=== PATIENT | female | born 1950 | race Caucasian/White ===

== ENCOUNTER → 2017-03-28 16:16 | Outpatient (CLI) | payer BC ==
[2015-06-03 09:51] VITALS: BMI 25.0
[~2017-03-28 16:16] MED LIST: CATAPRES TTS-10.1 MG TD; CATAPRES TTS-20.2 MG TD; CATAPRES0.1 MG PO; COLACE100 MG PO; EFFIENT10 MG PO; FLAGYL500 MG PO; GLUCOPHAGE500 MG PO; HYDRALAZINE HCL25 MG PO; HYDRALAZINE HCL50 MG PO; IBUPROFEN200 MG PO; LANTUS INSULIN10 ML SC; LANTUS SOL100 UNIT/1 SQ; LASIX20 MG PO; LEVAQUIN500 MG PO; LIPITOR80 MG PO; NEURONTIN 300300 MG PO; NEURONTIN600 MG PO; NICODERM C1 PATCH .3 TRANSDERM; NORCO 7.5/325 T1 TA1 PO; NORMODYNE / TR300 MG PO; NORVASC10 MG PO; PEPCID20 MG PO; POTASSIUM; PRINIVIL20 MG PO; TRANDATE300 MG PO; TYLENOL W/CODEI1 TAB PO; ZESTRIL40 MG PO
== END | disposition home or self-care (01) ==
LOC: D.RAD 16:16
DX: R05 Cough (principal); R50.9 Fever, unspecified

== ENCOUNTER 2017-04-16 10:12 | Inpatient (IN) | payer MEDICARE, BC ==
[~2017-04-16] VITALS: Ht 170.2 cm; Wt 81.6 kg
[~2017-04-16 10:12] MED LIST changes: -CATAPRES0.1 MG PO; -FLAGYL500 MG PO; -LANTUS SOL100 UNIT/1 SQ; -LEVAQUIN500 MG PO; -LIPITOR80 MG PO
[2017-04-16 11:37] LABS: BASOPHILS 0.4 % (0-2); EOSINOPHILS 2.1 % (0-7); HEMATOCRIT 24.2 % (36.0-48.0); HEMOGLOBIN 7.6 g/dL (12-16); IMMATURE GRANULOCYTES 0.4 % (0-5); LYMPHOCYTES 5.9 % (15-50); MCH 28.8 pg (26.0-34.0); MCHC 31.4 g/dL (31.0-37.0); MCV 91.7 fL (80.0-100.0); MEAN PLATELET VOLUME 10.2 fL (7.4-10.4); MONOCYTES 3.5 % (2-11); NEUTROPHILS 87.7 % (40-80); PLATELET COUNT 384 10x3/uL (130-400); RBC 2.64 10x6/uL (4.00-5.40); WBC 14.2 10x3/uL (4.8-10.8)
[2017-04-16 12:12] LABS: APPEARANCE CLOUDY (CLEAR); BILIRUBIN NEGATIVE (NEGATIVE); COLOR YELLOW (YELLOW); GLUCOSE NEGATIVE (NEGATIVE); KETONE NEGATIVE (NEGATIVE); NITRITE NEGATIVE (NEGATIVE); PROTEIN 2+ mg/dL (NEGATIVE); SPECIFIC GRAVITY 1.015 (1.005-1.020); UROBILINOGEN NORMAL (NORMAL)
[2017-04-16 12:16] LABS: BACTERIA MANY /hpf (NONE SEEN); EPITHELIAL CELLS OCC /hpf (0-5); RED CELLS - URINE 0-5 /hpf (0-5); WHITE CELLS - URINE 25-50 /hpf (0-5); YEAST >1+ /hpf (NONE SEEN)
[2017-04-16 12:21] LABS: ALBUMIN 1.5 g/dL (3.4-5.0); ANION GAP 15.3 mmol/L (8-16); BILIRUBIN - TOTAL 0.46 mg/dL (0.2-1.3); CALCIUM 7.4 mg/dL (8.5-10.1); CARBON DIOXIDE 17.9 mmol/L (21.0-32.0); CREATININE - SERUM 2.9 mg/dL (0.6-1.3); POTASSIUM - SERUM 4.2 mmol/L (3.5-5.1); PROTEIN - SERUM 6.3 g/dL (6.4-8.2)
[2017-04-16 15:33] VITALS: BP 158/81; BMI 29.0
[2017-04-16 17:08] LABS: HEMATOCRIT 24.5 % (36.0-48.0); HEMOGLOBIN 7.8 g/dL (12-16)
[2017-04-16 21:39] VITALS: BP 151/80
[2017-04-16 22:26] LABS: HEMATOCRIT 21.4 % (36.0-48.0)
[2017-04-16 22:39] LABS: HEMOGLOBIN 6.9 g/dL (12-16)
[2017-04-17] VITALS (7 sets, daily range): BP systolic 124–220; BP diastolic 82–109; Ht 170.2 cm; Wt 81.6 kg
[2017-04-17 06:21] LABS: BASOPHILS 0.4 % (0-2); EOSINOPHILS 1.9 % (0-7); IMMATURE GRANULOCYTES 0.3 % (0-5); LYMPHOCYTES 11.1 % (15-50); MCH 29.5 pg (26.0-34.0); MCHC 33.3 g/dL (31.0-37.0); MEAN PLATELET VOLUME 10.3 fL (7.4-10.4); MONOCYTES 7.1 % (2-11); NEUTROPHILS 79.2 % (40-80); PLATELET COUNT 363 10x3/uL (130-400); RBC 3.05 10x6/uL (4.00-5.40); RDW 15.6 % (11.5-14.5); WBC 13.2 10x3/uL (4.8-10.8)
[2017-04-17 06:24] LABS: MCV 88.5 fL (80.0-100.0)
[2017-04-17 06:35] LABS: CALCIUM 7.8 mg/dL (8.5-10.1); CARBON DIOXIDE 18.9 mmol/L (21.0-32.0); CREATININE - SERUM 2.5 mg/dL (0.6-1.3); POTASSIUM - SERUM 3.9 mmol/L (3.5-5.1)
[2017-04-17 14:07] LABS: HEMATOCRIT 26.8 % (36.0-48.0); HEMOGLOBIN 8.9 g/dL (12-16)
[2017-04-17 20:24] LABS: HEMATOCRIT 27.3 % (36.0-48.0); HEMOGLOBIN 8.9 g/dL (12-16)
[2017-04-17 22:34] LABS: HEMATOCRIT 27.8 % (36.0-48.0); HEMOGLOBIN 8.9 g/dL (12-16)
[2017-04-18 04:00] VITALS: BP 181/89
[2017-04-18 04:50] LABS: BASOPHILS 0.5 % (0-2); EOSINOPHILS 3.4 % (0-7); HEMATOCRIT 29.7 % (36.0-48.0); HEMOGLOBIN 9.5 g/dL (12-16); IMMATURE GRANULOCYTES 0.2 % (0-5); LYMPHOCYTES 10.8 % (15-50); MCH 28.8 pg (26.0-34.0); MEAN PLATELET VOLUME 10.3 fL (7.4-10.4); MONOCYTES 9.3 % (2-11); NEUTROPHILS 75.8 % (40-80); PLATELET COUNT 366 10x3/uL (130-400); WBC 11.3 10x3/uL (4.8-10.8)
[2017-04-18 05:14] LABS: ALBUMIN 1.5 g/dL (3.4-5.0); BILIRUBIN - TOTAL 0.47 mg/dL (0.2-1.3); CALCIUM 7.6 mg/dL (8.5-10.1); CARBON DIOXIDE 19.4 mmol/L (21.0-32.0); PROTEIN - SERUM 6.2 g/dL (6.4-8.2)
[2017-04-18 05:18] LABS: ANION GAP 15.2 mmol/L (8-16); POTASSIUM - SERUM 4.6 mmol/L (3.5-5.1)
[2017-04-18 08:51] VITALS: BP 207/94
[2017-04-18 11:29] VITALS: BP 185/99
[2017-04-18] MEDS ORDERED: LIPITOR80 MG PO (12:29)
[2017-04-18] MEDS ORDERED: CATAPRES0.1 MG PO (12:29)
[2017-04-18] MEDS ORDERED: HYDRALAZINE HCL25 MG PO (12:30)
[2017-04-18] MEDS ORDERED: LANTUS SOL100 UNIT/1 SQ (12:35)
[2017-04-18 13:59] LABS: HEMATOCRIT 28.5 % (36.0-48.0); HEMOGLOBIN 9.2 g/dL (12-16)
[2017-04-18 15:18] VITALS: BP 208/103
[2017-04-18 16:25] LABS: HEMATOCRIT 27.3 % (36.0-48.0); HEMOGLOBIN 8.9 g/dL (12-16)
[2017-04-18 22:25] VITALS: BP 124/79
[2017-04-19 01:27] VITALS: BP 188/90
[2017-04-19 06:28] VITALS: BP 188/85
[2017-04-19 06:28] LABS: BASOPHILS 0.3 % (0-2); EOSINOPHILS 3.6 % (0-7); HEMOGLOBIN 9.3 g/dL (12-16); IMMATURE GRANULOCYTES 0.3 % (0-5); LYMPHOCYTES 10.8 % (15-50); MCH 28.8 pg (26.0-34.0); MCHC 32.1 g/dL (31.0-37.0); MCV 89.8 fL (80.0-100.0); MEAN PLATELET VOLUME 10.4 fL (7.4-10.4); MONOCYTES 9.1 % (2-11); NEUTROPHILS 75.9 % (40-80); PLATELET COUNT 345 10x3/uL (130-400); RBC 3.23 10x6/uL (4.00-5.40); RDW 15.8 % (11.5-14.5); WBC 10.6 10x3/uL (4.8-10.8)
[2017-04-19 07:09] LABS: ALBUMIN 1.5 g/dL (3.4-5.0); BILIRUBIN - TOTAL 0.3 mg/dL (0.2-1.3); CALCIUM 7.3 mg/dL (8.5-10.1); CREATININE - SERUM 1.9 mg/dL (0.6-1.3); PROTEIN - SERUM 6.3 g/dL (6.4-8.2)
[2017-04-19 07:12] LABS: ANION GAP 13.3 mmol/L (8-16); POTASSIUM - SERUM 3.3 mmol/L (3.5-5.1)
[2017-04-19 08:12] VITALS: BP 218/109
[2017-04-19 12:37] LABS: HEMATOCRIT 28.5 % (36.0-48.0); HEMOGLOBIN 9.3 g/dL (12-16)
[2017-04-19] MEDS ORDERED: LEVAQUIN500 MG PO (13:58)
[2017-04-19] MEDS ORDERED: FLAGYL500 MG PO (13:59)
[2017-04-19 16:42] VITALS: BP 183/92
[2017-04-19 17:12] LABS: HEMATOCRIT 27.6 % (36.0-48.0); HEMOGLOBIN 8.9 g/dL (12-16)
[2017-04-19 19:00] VITALS: BP 196/102
[2017-04-20 00:17] LABS: HEMATOCRIT 27.7 % (36.0-48.0); HEMOGLOBIN 9.1 g/dL (12-16)
[2017-04-20 00:35] VITALS: BP 137/100
[2017-04-20 04:00] VITALS: BP 141/98
[2017-04-20 05:42] LABS: BASOPHILS 0.5 % (0-2); EOSINOPHILS 6.5 % (0-7); HEMATOCRIT 29.2 % (36.0-48.0); HEMOGLOBIN 9.4 g/dL (12-16); IMMATURE GRANULOCYTES 0.3 % (0-5); LYMPHOCYTES 13.2 % (15-50); MCH 29.1 pg (26.0-34.0); MCHC 32.2 g/dL (31.0-37.0); MCV 90.4 fL (80.0-100.0); MEAN PLATELET VOLUME 10.2 fL (7.4-10.4); MONOCYTES 9.2 % (2-11); NEUTROPHILS 70.3 % (40-80); PLATELET COUNT 346 10x3/uL (130-400); RBC 3.23 10x6/uL (4.00-5.40); WBC 10.1 10x3/uL (4.8-10.8)
[2017-04-20 06:02] LABS: ALBUMIN 1.5 g/dL (3.4-5.0); ANION GAP 13.2 mmol/L (8-16); BILIRUBIN - TOTAL 0.2 mg/dL (0.2-1.3); CALCIUM 7.3 mg/dL (8.5-10.1); CARBON DIOXIDE 20.9 mmol/L (21.0-32.0); CREATININE - SERUM 1.8 mg/dL (0.6-1.3); POTASSIUM - SERUM 3.1 mmol/L (3.5-5.1); PROTEIN - SERUM 6.4 g/dL (6.4-8.2)
[2017-04-20 08:35] VITALS: BP 134/66
[2017-04-20 10:10] LABS: HEMATOCRIT 28.2 % (36.0-48.0)
[2017-04-20 12:44] VITALS: BP 189/123
== END 2017-04-20 16:14 | DRG 811 ==
LOC: D.ER 10:12 → D.M2 14:06
PROVIDERS: Emergency Medicine; Family Medicine; Internal Medicine Nephrology
DX: D62 Acute posthemorrhagic anemia (principal); E43 Unspecified severe protein-calorie malnutrition; A09 Infectious gastroenteritis and colitis, unspecified; F17.203 Nicotine dependence unspecified, with withdrawal; N39.0 Urinary tract infection, site not specified; E11.22 Type 2 diabetes mellitus with diabetic chronic kidney disease; I12.9 Hypertensive chronic kidney disease with stage 1 through stage 4 chronic kidney disease, or unspecified chronic kidney disease; N18.3 Chronic kidney disease, stage 3 (moderate); I25.10 Atherosclerotic heart disease of native coronary artery without angina pectoris; E11.40 Type 2 diabetes mellitus with diabetic neuropathy, unspecified; Z68.29 Body mass index [BMI] 29.0-29.9, adult; R19.5 Other fecal abnormalities; Z86.73 Personal history of transient ischemic attack (TIA), and cerebral infarction without residual deficits; Z95.5 Presence of coronary angioplasty implant and graft

== ENCOUNTER 2017-09-20 21:41 | Observation (INO) | payer MEDICARE ==
[~2017-09-20] VITALS: Ht 170.2 cm; Wt 92.1 kg
[~2017-09-20 21:41] MED LIST changes: +CATAPRES0.1 MG PO; +CATAPRES0.3 MG PO; +FERROUS SULFAT325 MG PO; +FLAGYL500 MG PO; +IPRAT-ALBUT 0.5-3 ML UPD; +LANTUS SOL100 UNIT/1 SQ; +LASIX40 MG PO; +LEVAQUIN500 MG PO; +LIPITOR80 MG PO; +LISINOPRIL5 MG PO; +LOVENOX30 MG/0.3 SC; +LYRICA25 MG PO; +NORVASC5 MG PO; +NYSTATIN1 PWD TOPICAL; +OXYCODONE HCL5 MG PO; +POTASSIUM CHLO20 MEQ PO; +VITAMIN B-1250 MCG PO; +ZYVOX600 MG PO
[2017-09-20] MEDS ORDERED: BUMEX 1 MG TAB1 MG PO (21:50)
[2017-09-20 23:12] LABS: BASOPHILS 0.4 % (0-2); HEMATOCRIT 21.3 % (36.0-48.0); IMMATURE GRANULOCYTES 0.3 % (0-5); LYMPHOCYTES 15.3 % (15-50); MCH 28.8 pg (26.0-34.0); MCHC 31.5 g/dL (31.0-37.0); MCV 91.4 fL (80.0-100.0); MEAN PLATELET VOLUME 9.8 fL (7.4-10.4); MONOCYTES 7.6 % (2-11); NEUTROPHILS 71.4 % (40-80); RBC 2.33 10x6/uL (4.00-5.40); RDW 15.4 % (11.5-14.5); WBC 10.7 10x3/uL (4.8-10.8)
[2017-09-20 23:19] LABS: HEMOGLOBIN 6.7 g/dL (12-16); PLATELET COUNT 282 10x3/uL (130-400)
[2017-09-20 23:32] LABS: ALBUMIN 1.6 g/dL (3.4-5.0); ANION GAP 9.1 mmol/L (8-16); BILIRUBIN - TOTAL 0.17 mg/dL (0.2-1.3); CALCIUM 7.5 mg/dL (8.5-10.1); CARBON DIOXIDE 25.1 mmol/L (21.0-32.0); CREATININE - SERUM 3.6 mg/dL (0.6-1.3); POTASSIUM - SERUM 4.2 mmol/L (3.5-5.1); PROTEIN - SERUM 7.4 g/dL (6.4-8.2)
[2017-09-20 23:39] LABS: APTT 32.2 SECONDS (22.8-39.4); INR 1.12 (0.85-1.17)
[2017-09-21] VITALS (9 sets, daily range): BP systolic 134–190; BP diastolic 78–101; Ht 170.2 cm; Wt 92.1 kg
[2017-09-21 15:12] LABS: % SATURATION 29 % (15-55); IRON 38 ug/dl (35-150); TOTAL IRON BIND CAPACITY 130 ug/dl (260-445); UNSAT IRON BIND CAPACITY 92 ug/dl (150-375)
[2017-09-22 01:26] VITALS: BP 178/91
[2017-09-22 04:00] VITALS: BP 199/97
[2017-09-22 05:19] LABS: BASOPHILS 0.2 % (0-2); EOSINOPHILS 2.9 % (0-7); IMMATURE GRANULOCYTES 0.2 % (0-5); LYMPHOCYTES 12.2 % (15-50); MCH 28.7 pg (26.0-34.0); MCHC 31.9 g/dL (31.0-37.0); MCV 90.1 fL (80.0-100.0); MEAN PLATELET VOLUME 9.6 fL (7.4-10.4); MONOCYTES 6.8 % (2-11); NEUTROPHILS 77.7 % (40-80); PLATELET COUNT 293 10x3/uL (130-400); RDW 15.6 % (11.5-14.5); WBC 8.8 10x3/uL (4.8-10.8)
[2017-09-22 05:25] LABS: HEMATOCRIT 27.3 % (36.0-48.0); HEMOGLOBIN 8.7 g/dL (12-16); RBC 3.03 10x6/uL (4.00-5.40)
[2017-09-22 05:58] LABS: ANION GAP 12.7 mmol/L (8-16); CALCIUM 7.8 mg/dL (8.5-10.1); CARBON DIOXIDE 21.6 mmol/L (21.0-32.0); CREATININE - SERUM 3.4 mg/dL (0.6-1.3); POTASSIUM - SERUM 4.3 mmol/L (3.5-5.1); T4 THYROXIN - FREE 1.01 ng/dL (0.76-1.46); THYROID STIMULATING HORMONE 0.42 uIU/mL (0.36-3.74)
[2017-09-22 08:20] LABS: FOLATE (FOLIC ACID) - SERUM 18.9 ng/mL (>3.0)
[2017-09-22 08:30] VITALS: BP 194/94
[2017-09-22] MEDS ORDERED: NORVASC5 MG PO (13:29)
[2017-09-22 16:14] VITALS: BP 202/100
== END 2017-09-22 16:35 ==
LOC: D.ER 21:41 → D.M2 23:24 → D.EDHOLD 23:24 → OBSVTIME 23:24 → D.M2 23:41
PROVIDERS: Emergency Medicine; Family Medicine; Internal Medicine Gastroenterology
DX: D51.9 Vitamin B12 deficiency anemia, unspecified (principal); D63.1 Anemia in chronic kidney disease; E11.22 Type 2 diabetes mellitus with diabetic chronic kidney disease; N18.9 Chronic kidney disease, unspecified; E11.40 Type 2 diabetes mellitus with diabetic neuropathy, unspecified; K29.70 Gastritis, unspecified, without bleeding; K21.0 Gastro-esophageal reflux disease with esophagitis; K31.9 Disease of stomach and duodenum, unspecified

== ENCOUNTER → 2017-09-27 08:44 | Outpatient (CLI) | payer MEDICARE ==
[2017-09-21 20:41] VITALS: BMI 31.8
[~2017-09-27 08:44] MED LIST changes: +AUGMENTIN 875-11 TAB PO; +BUMEX 1 MG TAB1 MG PO; +DECADRON4 MG PO; +DEXEDRINE5 MG PO; +FUROSEMIDE40 MG PO; +LANTUS INSULIN10 ML SQ; +MULTIPLE VITAMI1 TA1 PO; +OS-CAL500 MG PO; +OXYCONTIN10 MG PO; +PHOSLO667 MG PO; +PROTONIX40 MG PO; +REMERON15 MG PO; +REVLIMID5 MG PO; +VIBRAMYCIN 100100 MG PO
== END | disposition home or self-care (01) ==
LOC: D.RAD 08:44
DX: C90.00 Multiple myeloma not having achieved remission (principal)

== ENCOUNTER 2017-10-13 12:34 | Inpatient (IN) | payer MEDICARE ==
[~2017-10-13] VITALS: Ht 170.2 cm; Wt 90.7 kg
--- NOTE | ~2017-10-13 | EC ---
PATIENT:YUVAL LINARES DATE OF SERVICE: 10/13/17 SEX: F MEDICAL RECORD: [id number] DATE OF : 54 LOCATION:D.M2 D.212 AGE OF PATIENT: 67 ADMISSION DATE: 10/13/17 REFERRING PHYSICIAN: INTERPRETING PHYSICIAN: MARSHALL GONZALES MD ECHOCARDIOGRAM REPORT ECHO CHARGES 4 ECHO COMPLETE Date: 10/15 CLINICAL DIAGNOSIS: CHF ECHOCARDIOGRAPHIC MEASUREMENTS (adult normal given) AC root (d.<3.7cm) 4.4 cm LV Septum d (<1.2 cm> 1.6 cm Valve Excursion 1.9 cm LV Septum (systole) 2.0 cm Left Atria (s.<4.0cm> 4.0 cm LVPW d(<1.2cm) 2.1 cm RV (d.<2.3cm) 4.0 cm LVPW (sytole) 2.3 cm LV diastole(<5.6CM) 4.6 cm MV E-F(>70mm/sec) cm LV systole 3.2 cm LVOT Diameter 2.0 cm MV exc.(>10mm) 1.7 cm Est.ejection fraction (50-75%) % DOPPLER: LVIT cm/sec A 125 cm/sec E 156 cm/sec LA cm/sec RVSP 34 mmHg LVOT 133 cm/sec AOP1/2T m/s Asc. Ao 175 cm/sec RVOT 100 cm/sec RA cm/sec PA 143 cm/sec AV Gradient Peak 12.25mmHg AV Mean 6.55 mmHg AV Area 2.5 cm MV Gradient Peak 9.67 mmHg MV Mean 4.76 mmHg MV Area cm COMMENTS: Shirring Machine Operator Automatic: 2 NORA PAVON Directional Drill Operator: 3 Dr. Krishna TAPE# PACS Pericardial Effusion N DATE OF SERVICE: 10/16/2017 Adequate 2D echo, color flow, spectral Doppler, and M-mode LVH is present. LV internal dimensions are normal. Wall motion is normal. EF is greater than or equal to 55%. Aortic valve sclerosis; there is no evidence of stenosis on Doppler interrogation. Left atrium is upper limits of normal to mildly dilated at 4.1 cm. Mitral valve shows no prolapse. Trace MR. Right-sided chamber is grossly normal. Trace TR. ECHOCARDIOGRAM REPORT [id number] YUVAL LINARES TRANSINT:[id number] Voice Confirmation ID: [id number] DOCUMENT ID: [id number] MARSHALL GONZALES MD at 1254 CC: [id number] DICTATION DATE: 10/16/17835 ELECTRIC POWER SUPERINTENDENT: 10/16/17 1130 DIS IN 10/24/17 [place] [id number] [place] [id number]
--- NOTE | ~2017-10-13 | MORECARE ---
CASE MANAGEMENT DISCHARGE SUMMARY PATIENT: YUVAL LINARES UNIT: [id number] ADM DATE: 10/13/17 AGE: 67 : 52 SEX: F ROOM/BED: D.8831 AUTHOR: CASE, [facility] OWNER PHYSICIAN: REFERRING PHYSICIAN: LARA PENA MD DATE OF SERVICE: 10/13/17 Discharge Plan Patient Name: YUVAL LINARES Facility: [facility]:[place] : 1950 Planned Disposition: SNF w Planned Readmission Anticipated Discharge Date: 10/15/17 Discharge Date: Expected LOS: 2 Initial Reviewer: [email or web address] Initial Review Date: 10/13/2017 Generated: 10/14/17 2:09 pm DCPIA - Discharge Planning Initial Assessment Updated by [email or web address]: Eliz Johns on 10/14/17 1:07 pm * Is the patient Alert and Oriented? Yes * How many steps to enterexit or inside your home? None * PCP Dr. Jann Argueta - document control manager * Pharmacy [facility] * Preadmission Environment Shelter Facility * Facility Name [facility] * ADLs Partial Dependent * Partial ADLs (Assistance needed) Ambulation Bathing Medication Management Toileting Transfers * Equipment Wheelchair * Other Equipment Only able to transfer from wheelchair to bed with assistance. * List name and contact numbers for known caregivers / representatives who currently or will assist patient after discharge: Rashi Linares - [facility]- [phone] Yeimy Marcel - dtr in law- * Verbal permission to speak to the caregivers and representatives has been obtained from the patient. Yes * Community resources currently utilized None * Additional services required to return to the preadmission environment? No * Can the patient safely return to the preadmission environment? Yes * Has this patient been hospitalized within the prior 30 days at any hospital? Yes Patient Name: YUVAL LINARES Page [id number] All edits/amendments must be made on the electronic document DICTATION DATE: 10/14/17 1309 FLEET DRIVER: 10/14/17 1309 RPT#: [id number] DC DATE: STATUS: ADM IN [facility] [address] [place] [address] END OF REPORT
--- NOTE | ~2017-10-13 | OP ---
PATIENT NAME: YUAVL LINARES MEDICAL RECORD: [id number] :54 LOCATION:D.M2 D.2129 ADMISSION DATE:10/13/17 SURGEON: CHEY FULTON MD DATE OF OPERATION: 10/16/2017 PREOPERATIVE DIAGNOSIS: End-stage renal disease without chronic access for hemodialysis. POSTOPERATIVE DIAGNOSIS: End-stage renal disease without chronic access for hemodialysis. PROCEDURES: 1. Placement of right internal jugular HemoSplit catheter (tunneled cuffed dual-lumen hemodialysis catheter) under fluoroscopic guidance. 2. Immediate surgeon interpretation of the fluoroscopic images. SURGEON: Chey Fulton MD REED PRESS FEEDER: None. BLOOD LOSS: Minimal. ANESTHESIA: Local with IV sedation. COMPLICATIONS: None. The risks, possible complications, and alternatives to the procedure were explained to the patient. She elects to proceed. Initially she has been resistant to undergo the operation. However, I discussed the operation in the presence of one of her friends who works in the operating room and the patient elected to proceed. No radiologist was present for this procedure. Static fluoroscopic images were obtained and are kept in the PACS system. A surgeon interpretation of the radiographic images is dictated within the body of this operative note. OPERATIVE COURSE: The patient was conveyed to the operating room electively on 10/16/2017. IV sedation was induced by the anesthesia staff. The right chest and right neck were sterilely prepped and draped. Local anesthetic was used to infiltrate the skin and subcutaneous tissues at the base of the right neck. Under ultrasonographic guidance, I identified a very large compressible internal jugular vein. I percutaneously access the internal jugular vein on the first try in an antegrade fashion. A guidewire passed easily. This was visualized under fluoroscopy. A counterincision was accomplished in the right anterior superior chest inferior to the right clavicle. An incision was accomplished around the wire. I tunneled a 19-cm HemoSplit catheter from the chest incision to the neck incision. Over the guidewire, I dilated to a larger size. This was visualized under fluoroscopy. A dilator sheath was then advanced over the wire. The dilator and wire were removed. Through the sheath, the tips of the HemoSplit catheter were advanced. The peel-away sheath was then removed. I pulled back on the HemoSplit catheter to seat the cuff in subcutaneous tissues. All lumens flushed easily and aspirated dark, nonpulsatile blood. An image was obtained over the right side of the chest. It revealed that the longest tip of the HemoSplit catheter was near the cavoatrial junction. There OPERATIVE REPORT [id number] MILAGROSYUVAL was no apparent kinking or twisting of the HemoSplit catheter. No radiographic evidence of complication. Neck incision was closed with a single intracuticular 3-0 Vicryl. The flange of the HemoSplit catheter were sutured to the underlying skin with 2-0 nylons. I then topped off both lumens of the HemoSplit catheter with the appropriate amount of concentrated heparin. As the patient is going to be prone to bleeding, I then packed some fibrillar up along the HemoSplit catheter tract. A sterile dressing was applied. The patient was then conveyed to the post-anesthesia care unit where she was in stable condition. TRANSINT:[id number] Voice Confirmation ID: [id number] DOCUMENT ID: [id number] CHEY FULTON MD at 1023 CC: LOGAN CELIS MD and SHAHAB FRANCOIS [id number] DICTATION DATE: 10/16/17 1255 PHYSICAL THERAPY ASSISTANT: 10/16/17 1316 ADM IN [facility] [address] [place] [address]
[~2017-10-13 12:34] MED LIST changes: -AUGMENTIN 875-11 TAB PO; -DECADRON4 MG PO; -DEXEDRINE5 MG PO; -FUROSEMIDE40 MG PO; -LANTUS INSULIN10 ML SQ; -MULTIPLE VITAMI1 TA1 PO; -OS-CAL500 MG PO; -OXYCONTIN10 MG PO; -PHOSLO667 MG PO; -PROTONIX40 MG PO; -REMERON15 MG PO; -REVLIMID5 MG PO; -VIBRAMYCIN 100100 MG PO
[2017-10-13] MEDS ORDERED: NORVASC5 MG PO (12:40)
[2017-10-13] MEDS ORDERED: LIPITOR80 MG PO (12:40)
[2017-10-13] MEDS ORDERED: BUMEX 1 MG TAB1 MG PO (12:41)
[2017-10-13] MEDS ORDERED: CATAPRES0.1 MG PO ×2 (12:42→12:43)
[2017-10-13] MEDS ORDERED: OS-CAL500 MG PO (12:42)
[2017-10-13] MEDS ORDERED: COLACE100 MG PO (12:43)
[2017-10-13] MEDS ORDERED: DECADRON4 MG PO (12:44)
[2017-10-13] MEDS ORDERED: VIBRAMYCIN 100100 MG PO (12:45)
[2017-10-13] MEDS ORDERED: LOVENOX30 MG/0.3 SC (12:45)
[2017-10-13] MEDS ORDERED: FERROUS SULFAT325 MG PO (12:45)
[2017-10-13] MEDS ORDERED: FUROSEMIDE40 MG PO (12:46)
[2017-10-13] MEDS ORDERED: HYDRALAZINE HCL50 MG PO (12:46)
[2017-10-13] MEDS ORDERED: LANTUS INSULIN10 ML SQ (12:47)
[2017-10-13] MEDS ORDERED: IPRAT-ALBUT 0.5-3 ML UPD (12:48)
[2017-10-13] MEDS ORDERED: PRINIVIL20 MG PO (12:49)
[2017-10-13] MEDS ORDERED: LYRICA25 MG PO (12:49)
[2017-10-13] MEDS ORDERED: DEXEDRINE5 MG PO (12:50)
[2017-10-13] MEDS ORDERED: NYSTATIN1 PWD TOPICAL (12:51)
[2017-10-13] MEDS ORDERED: MULTIPLE VITAMI1 TA1 PO (12:51)
[2017-10-13] MEDS ORDERED: REMERON15 MG PO (12:52)
[2017-10-13] MEDS ORDERED: OXYCONTIN10 MG PO (12:52)
[2017-10-13] MEDS ORDERED: REVLIMID5 MG PO (12:53)
[2017-10-13 13:31] LABS: BASOPHILS 0.1 % (0-2); EOSINOPHILS 0.7 % (0-7); HEMATOCRIT 26.3 % (36.0-48.0); HEMOGLOBIN 8.2 g/dL (12-16); IMMATURE GRANULOCYTES 0.4 % (0-5); LYMPHOCYTES 3.9 % (15-50); MCH 28.6 pg (26.0-34.0); MCHC 31.2 g/dL (31.0-37.0); MCV 91.6 fL (80.0-100.0); MEAN PLATELET VOLUME 11.1 fL (7.4-10.4); MONOCYTES 11.4 % (2-11); NEUTROPHILS 83.5 % (40-80); RBC 2.87 10x6/uL (4.00-5.40); RDW 15.9 % (11.5-14.5); WBC 16.4 10x3/uL (4.8-10.8)
[2017-10-13 13:37] LABS: APTT 38.8 SECONDS (22.8-39.4); INR 1.32 (0.85-1.17)
[2017-10-13 13:44] LABS: ALBUMIN 1.4 g/dL (3.4-5.0); ANION GAP 16.7 mmol/L (8-16); BILIRUBIN - TOTAL 0.3 mg/dL (0.2-1.3); CARBON DIOXIDE 17.9 mmol/L (21.0-32.0); CREATININE - SERUM 5.7 mg/dL (0.6-1.3); POTASSIUM - SERUM 4.6 mmol/L (3.5-5.1); PROTEIN - SERUM 7.2 g/dL (6.4-8.2)
[2017-10-13 13:49] LABS: PLATELET COUNT 224 10x3/uL (130-400)
[2017-10-13 14:05] LABS: CALCIUM 4.4 mg/dL (8.5-10.1)
[2017-10-13 16:40] LABS: APPEARANCE HAZY (CLEAR); BILIRUBIN NEGATIVE (NEGATIVE); COLOR YELLOW (YELLOW); GLUCOSE NEGATIVE (NEGATIVE); KETONE NEGATIVE (NEGATIVE); NITRITE NEGATIVE (NEGATIVE); PROTEIN 2+ mg/dL (NEGATIVE); UROBILINOGEN NORMAL (NORMAL); WHITE CELLS - URINE >50 /hpf (0-5)
[2017-10-13 16:41] LABS: BACTERIA MANY /hpf (NONE SEEN); EPITHELIAL CELLS 0-5 /hpf (0-5); RED CELLS - URINE 0-5 /hpf (0-5)
[2017-10-14] VITALS (7 sets, daily range): BP systolic 111–140; BP diastolic 60–70; Ht 170.2 cm; Wt 90.7 kg
[2017-10-14 05:54] LABS: BASOPHILS 0.1 % (0-2); EOSINOPHILS 0.8 % (0-7); HEMATOCRIT 25.3 % (36.0-48.0); HEMOGLOBIN 7.9 g/dL (12-16); IMMATURE GRANULOCYTES 0.3 % (0-5); LYMPHOCYTES 5.5 % (15-50); MCH 28.6 pg (26.0-34.0); MCHC 31.2 g/dL (31.0-37.0); MCV 91.7 fL (80.0-100.0); MONOCYTES 13.3 % (2-11); PLATELET COUNT 194 10x3/uL (130-400); RBC 2.76 10x6/uL (4.00-5.40); WBC 13.1 10x3/uL (4.8-10.8)
[2017-10-14 06:45] LABS: ALBUMIN 1.3 g/dL (3.4-5.0); ANION GAP 17.9 mmol/L (8-16); BILIRUBIN - TOTAL 0.25 mg/dL (0.2-1.3); CARBON DIOXIDE 18.3 mmol/L (21.0-32.0); CREATININE - SERUM 5.8 mg/dL (0.6-1.3); POTASSIUM - SERUM 5.2 mmol/L (3.5-5.1); PROTEIN - SERUM 6.7 g/dL (6.4-8.2)
[2017-10-14 06:56] LABS: CALCIUM 4.1 mg/dL (8.5-10.1)
[2017-10-15 04:30] VITALS: BP 137/68
[2017-10-15 04:50] LABS: BASOPHILS 0.1 % (0-2); EOSINOPHILS 0.3 % (0-7); HEMATOCRIT 24.8 % (36.0-48.0); HEMOGLOBIN 7.7 g/dL (12-16); IMMATURE GRANULOCYTES 0.5 % (0-5); LYMPHOCYTES 3.9 % (15-50); MCH 28.3 pg (26.0-34.0); MCV 91.2 fL (80.0-100.0); MEAN PLATELET VOLUME 11.5 fL (7.4-10.4); MONOCYTES 14.8 % (2-11); NEUTROPHILS 80.4 % (40-80); PLATELET COUNT 167 10x3/uL (130-400); RBC 2.72 10x6/uL (4.00-5.40); RDW 16.1 % (11.5-14.5)
[2017-10-15 05:16] LABS: ALBUMIN 1.3 g/dL (3.4-5.0); ANION GAP 19.1 mmol/L (8-16); BILIRUBIN - TOTAL 0.27 mg/dL (0.2-1.3); CARBON DIOXIDE 15.3 mmol/L (21.0-32.0); POTASSIUM - SERUM 5.4 mmol/L (3.5-5.1); PROTEIN - SERUM 6.7 g/dL (6.4-8.2)
[2017-10-15 05:19] LABS: CALCIUM 3.9 mg/dL (8.5-10.1)
[2017-10-15 08:55] VITALS: BP 135/69
[2017-10-15 13:25] VITALS: BP 138/72
[2017-10-15 16:11] VITALS: BP 137/67
[2017-10-15 21:54] VITALS: BP 135/67
[2017-10-16 02:13] VITALS: BP 142/70
[2017-10-16 05:26] VITALS: BP 134/69
[2017-10-16 06:24] LABS: BASOPHILS 0.2 % (0-2); EOSINOPHILS 0.2 % (0-7); HEMATOCRIT 29.7 % (36.0-48.0); IMMATURE GRANULOCYTES 0.5 % (0-5); LYMPHOCYTES 4.5 % (15-50); MCHC 32.3 g/dL (31.0-37.0); MCV 89.7 fL (80.0-100.0); MEAN PLATELET VOLUME 11.4 fL (7.4-10.4); MONOCYTES 9.9 % (2-11); NEUTROPHILS 84.7 % (40-80); PLATELET COUNT 157 10x3/uL (130-400); RDW 16.1 % (11.5-14.5); WBC 13.3 10x3/uL (4.8-10.8)
[2017-10-16 06:30] LABS: HEMOGLOBIN 9.6 g/dL (12-16); RBC 3.31 10x6/uL (4.00-5.40)
[2017-10-16 06:44] LABS: ALBUMIN 1.3 g/dL (3.4-5.0); ANION GAP 21.3 mmol/L (8-16); BILIRUBIN - TOTAL 0.44 mg/dL (0.2-1.3); CARBON DIOXIDE 15.1 mmol/L (21.0-32.0); CREATININE - SERUM 5.7 mg/dL (0.6-1.3); POTASSIUM - SERUM 5.4 mmol/L (3.5-5.1); PROTEIN - SERUM 6.9 g/dL (6.4-8.2)
[2017-10-16 06:50] LABS: CALCIUM 3.9 mg/dL (8.5-10.1)
[2017-10-16 10:10] VITALS: BP 118/70
[2017-10-16 13:56] VITALS: BP 140/71
[2017-10-17 05:17] VITALS: BP 112/62
[2017-10-17 05:58] LABS: BASOPHILS 0.1 % (0-2); EOSINOPHILS 0.1 % (0-7); HEMATOCRIT 29.4 % (36.0-48.0); HEMOGLOBIN 9.5 g/dL (12-16); IMMATURE GRANULOCYTES 0.5 % (0-5); LYMPHOCYTES 3.1 % (15-50); MCH 28.5 pg (26.0-34.0); MCHC 32.3 g/dL (31.0-37.0); MCV 88.3 fL (80.0-100.0); MEAN PLATELET VOLUME 11.5 fL (7.4-10.4); NEUTROPHILS 87.2 % (40-80); PLATELET COUNT 149 10x3/uL (130-400); RBC 3.33 10x6/uL (4.00-5.40)
[2017-10-17 06:23] LABS: ALBUMIN 1.3 g/dL (3.4-5.0); BILIRUBIN - TOTAL 0.5 mg/dL (0.2-1.3); CARBON DIOXIDE 18.8 mmol/L (21.0-32.0); CREATININE - SERUM 4.5 mg/dL (0.6-1.3); PROTEIN - SERUM 6.9 g/dL (6.4-8.2)
[2017-10-17 06:26] LABS: ANION GAP 18.2 mmol/L (8-16)
[2017-10-17 06:27] LABS: CALCIUM 4.9 mg/dL (8.5-10.1)
[2017-10-17 08:17] VITALS: BP 161/74
[2017-10-17 12:05] VITALS: BP 158/82
[2017-10-17 16:45] VITALS: BP 153/73
[2017-10-17 20:00] VITALS: BP 123/81
[2017-10-18] VITALS: BP 161/84
[2017-10-18 04:00] VITALS: BP 159/80
[2017-10-18 05:55] LABS: BASOPHILS 0.2 % (0-2); EOSINOPHILS 0.4 % (0-7); HEMATOCRIT 29.6 % (36.0-48.0); HEMOGLOBIN 9.6 g/dL (12-16); IMMATURE GRANULOCYTES 0.3 % (0-5); LYMPHOCYTES 3.5 % (15-50); MCH 29.1 pg (26.0-34.0); MCHC 32.4 g/dL (31.0-37.0); MCV 89.7 fL (80.0-100.0); MEAN PLATELET VOLUME 11.3 fL (7.4-10.4); NEUTROPHILS 86.6 % (40-80); PLATELET COUNT 144 10x3/uL (130-400); RDW 16.4 % (11.5-14.5)
[2017-10-18 06:35] LABS: ALBUMIN 1.2 g/dL (3.4-5.0); ANION GAP 18.5 mmol/L (8-16); BILIRUBIN - TOTAL 0.42 mg/dL (0.2-1.3); CARBON DIOXIDE 18.1 mmol/L (21.0-32.0); CREATININE - SERUM 4.5 mg/dL (0.6-1.3); POTASSIUM - SERUM 3.6 mmol/L (3.5-5.1); PROTEIN - SERUM 6.6 g/dL (6.4-8.2)
[2017-10-18 06:38] LABS: CALCIUM 5.3 mg/dL (8.5-10.1)
[2017-10-18 09:16] VITALS: BP 152/85
[2017-10-18 12:22] VITALS: BP 162/84
[2017-10-18 20:00] VITALS: BP 179/68
[2017-10-19 06:11] VITALS: BP 165/95
[2017-10-19 06:19] LABS: BASOPHILS 0.1 % (0-2); EOSINOPHILS 1.5 % (0-7); HEMATOCRIT 30.9 % (36.0-48.0); HEMOGLOBIN 9.6 g/dL (12-16); IMMATURE GRANULOCYTES 0.3 % (0-5); LYMPHOCYTES 8.6 % (15-50); MCH 28.2 pg (26.0-34.0); MCHC 31.1 g/dL (31.0-37.0); MCV 90.9 fL (80.0-100.0); MEAN PLATELET VOLUME 11.3 fL (7.4-10.4); MONOCYTES 6.2 % (2-11); NEUTROPHILS 83.3 % (40-80); PLATELET COUNT 158 10x3/uL (130-400); RDW 16.3 % (11.5-14.5); WBC 11.1 10x3/uL (4.8-10.8)
[2017-10-19 06:49] LABS: ALBUMIN 1.2 g/dL (3.4-5.0); BILIRUBIN - TOTAL 0.44 mg/dL (0.2-1.3); POTASSIUM - SERUM 3.4 mmol/L (3.5-5.1); PROTEIN - SERUM 6.7 g/dL (6.4-8.2)
[2017-10-19 06:50] LABS: ANION GAP 12.3 mmol/L (8-16); CALCIUM 6.9 mg/dL (8.5-10.1); CARBON DIOXIDE 25.1 mmol/L (21.0-32.0); CREATININE - SERUM 3.1 mg/dL (0.6-1.3)
[2017-10-19 08:52] VITALS: BP 132/82
[2017-10-19 12:00] VITALS: BP 157/73
[2017-10-19 16:47] VITALS: BP 141/74
[2017-10-19 21:27] VITALS: BP 166/79
[2017-10-20 02:11] VITALS: BP 124/75
[2017-10-20 04:00] VITALS: BP 169/77
[2017-10-20 06:33] LABS: ANION GAP 13.6 mmol/L (8-16); CALCIUM 6.9 mg/dL (8.5-10.1); CARBON DIOXIDE 24.8 mmol/L (21.0-32.0); CREATININE - SERUM 3.3 mg/dL (0.6-1.3); POTASSIUM - SERUM 3.4 mmol/L (3.5-5.1)
[2017-10-20 08:39] VITALS: BP 165/89
[2017-10-20 14:21] LABS: BASOPHILS 0.3 % (0-2); EOSINOPHILS 1.4 % (0-7); HEMATOCRIT 33.6 % (36.0-48.0); HEMOGLOBIN 10.5 g/dL (12-16); IMMATURE GRANULOCYTES 0.5 % (0-5); LYMPHOCYTES 5.6 % (15-50); MCH 28.8 pg (26.0-34.0); MCHC 31.3 g/dL (31.0-37.0); MCV 92.1 fL (80.0-100.0); MONOCYTES 12.4 % (2-11); NEUTROPHILS 79.8 % (40-80); RBC 3.65 10x6/uL (4.00-5.40); RDW 15.6 % (11.5-14.5); WBC 10.1 10x3/uL (4.8-10.8)
[2017-10-20 14:32] LABS: PLATELET COUNT 200 10x3/uL (130-400)
[2017-10-20 15:55] VITALS: BP 153/68
[2017-10-20 21:20] VITALS: BP 139/79
[2017-10-21] VITALS (7 sets, daily range): BP systolic 138–181; BP diastolic 72–87
[2017-10-21 07:25] LABS: HEP B CORE AB TOTAL Negative (Negative); HEPATITIS C ANTIBODY 0.1 (0.0-0.9)
[2017-10-21 12:20] LABS: BASOPHILS 0.4 % (0-2); EOSINOPHILS 0.8 % (0-7); HEMATOCRIT 32.4 % (36.0-48.0); HEMOGLOBIN 10.1 g/dL (12-16); IMMATURE GRANULOCYTES 0.4 % (0-5); LYMPHOCYTES 6.4 % (15-50); MCH 28.7 pg (26.0-34.0); MCHC 31.2 g/dL (31.0-37.0); MEAN PLATELET VOLUME 10.3 fL (7.4-10.4); MONOCYTES 10.4 % (2-11); NEUTROPHILS 81.6 % (40-80); PLATELET COUNT 221 10x3/uL (130-400); RBC 3.52 10x6/uL (4.00-5.40); RDW 15.4 % (11.5-14.5); WBC 8.6 10x3/uL (4.8-10.8)
[2017-10-21 12:36] LABS: ALBUMIN 1.2 g/dL (3.4-5.0); BILIRUBIN - TOTAL 0.36 mg/dL (0.2-1.3); CARBON DIOXIDE 27.4 mmol/L (21.0-32.0); CREATININE - SERUM 2.4 mg/dL (0.6-1.3); MAGNESIUM - SERUM 1.5 mg/dL (1.8-2.4); POTASSIUM - SERUM 3.4 mmol/L (3.5-5.1); PROTEIN - SERUM 6.8 g/dL (6.4-8.2)
[2017-10-21 12:38] LABS: CALCIUM 6.4 mg/dL (8.5-10.1)
[2017-10-22 05:36] LABS: BASOPHILS 0.6 % (0-2); EOSINOPHILS 2.8 % (0-7); HEMATOCRIT 31.7 % (36.0-48.0); HEMOGLOBIN 9.8 g/dL (12-16); IMMATURE GRANULOCYTES 0.5 % (0-5); LYMPHOCYTES 7.1 % (15-50); MCH 28.6 pg (26.0-34.0); MCHC 30.9 g/dL (31.0-37.0); MCV 92.4 fL (80.0-100.0); MEAN PLATELET VOLUME 10.8 fL (7.4-10.4); MONOCYTES 10.9 % (2-11); NEUTROPHILS 78.1 % (40-80); PLATELET COUNT 258 10x3/uL (130-400); RBC 3.43 10x6/uL (4.00-5.40); RDW 15.4 % (11.5-14.5); WBC 8.4 10x3/uL (4.8-10.8)
[2017-10-22 06:42] LABS: ALBUMIN 1.2 g/dL (3.4-5.0); ANION GAP 9.7 mmol/L (8-16); BILIRUBIN - TOTAL 0.29 mg/dL (0.2-1.3); CARBON DIOXIDE 27.4 mmol/L (21.0-32.0); CREATININE - SERUM 2.6 mg/dL (0.6-1.3); PHOSPHOROUS 3.5 mg/dL (2.5-4.9); POTASSIUM - SERUM 3.1 mmol/L (3.5-5.1); PROTEIN - SERUM 6.7 g/dL (6.4-8.2)
[2017-10-22 07:01] LABS: CALCIUM 6.4 mg/dL (8.5-10.1)
[2017-10-22 08:00] VITALS: BP 145/74
[2017-10-22 08:06] VITALS: BP 178/81
[2017-10-22 11:58] VITALS: BP 177/82
[2017-10-22 17:03] VITALS: BP 160/78
[2017-10-23 00:11] VITALS: BP 142/70; BP 145/74
[2017-10-23 04:00] VITALS: BP 157/77
[2017-10-23 06:02] LABS: BASOPHILS 1.2 % (0-2); EOSINOPHILS 2.7 % (0-7); HEMATOCRIT 31.7 % (36.0-48.0); HEMOGLOBIN 9.9 g/dL (12-16); IMMATURE GRANULOCYTES 0.4 % (0-5); LYMPHOCYTES 8.1 % (15-50); MCH 29.1 pg (26.0-34.0); MCHC 31.2 g/dL (31.0-37.0); MCV 93.2 fL (80.0-100.0); MEAN PLATELET VOLUME 10.7 fL (7.4-10.4); NEUTROPHILS 77.6 % (40-80); PLATELET COUNT 288 10x3/uL (130-400); RDW 15.6 % (11.5-14.5); WBC 7.8 10x3/uL (4.8-10.8)
[2017-10-23 06:55] LABS: ALBUMIN 1.3 g/dL (3.4-5.0); BILIRUBIN - TOTAL 0.34 mg/dL (0.2-1.3); CARBON DIOXIDE 27.6 mmol/L (21.0-32.0); CREATININE - SERUM 2.6 mg/dL (0.6-1.3); MAGNESIUM - SERUM 1.7 mg/dL (1.8-2.4)
[2017-10-23 06:57] LABS: ANION GAP 11.2 mmol/L (8-16); POTASSIUM - SERUM 3.8 mmol/L (3.5-5.1)
[2017-10-23 06:58] LABS: CALCIUM 6.3 mg/dL (8.5-10.1)
[2017-10-23 23:37] VITALS: BP 147/78
[2017-10-24 05:00] VITALS: BP 172/83
[2017-10-24 06:10] LABS: EOSINOPHILS 3.1 % (0-7); HEMATOCRIT 32.5 % (36.0-48.0); IMMATURE GRANULOCYTES 0.3 % (0-5); LYMPHOCYTES 11.9 % (15-50); MCH 28.7 pg (26.0-34.0); MCHC 30.8 g/dL (31.0-37.0); MCV 93.1 fL (80.0-100.0); MEAN PLATELET VOLUME 10.2 fL (7.4-10.4); MONOCYTES 9.2 % (2-11); NEUTROPHILS 73.5 % (40-80); PLATELET COUNT 296 10x3/uL (130-400); RBC 3.49 10x6/uL (4.00-5.40); RDW 15.3 % (11.5-14.5); WBC 6.4 10x3/uL (4.8-10.8)
[2017-10-24 06:38] LABS: ALBUMIN 1.3 g/dL (3.4-5.0); ANION GAP 8.5 mmol/L (8-16); BILIRUBIN - TOTAL 0.31 mg/dL (0.2-1.3); CARBON DIOXIDE 30.1 mmol/L (21.0-32.0); CREATININE - SERUM 2.2 mg/dL (0.6-1.3); MAGNESIUM - SERUM 1.6 mg/dL (1.8-2.4); PHOSPHOROUS 2.5 mg/dL (2.5-4.9); POTASSIUM - SERUM 3.6 mmol/L (3.5-5.1); PROTEIN - SERUM 6.9 g/dL (6.4-8.2)
[2017-10-24 06:40] LABS: CALCIUM 6.6 mg/dL (8.5-10.1)
[2017-10-24 08:02] VITALS: BP 171/81
[2017-10-24 11:38] VITALS: BP 158/77
[2017-10-24] MEDS ORDERED: PHOSLO667 MG PO (12:45)
[2017-10-24] MEDS ORDERED: PROTONIX40 MG PO (12:46)
[2017-10-24 15:40] VITALS: BP 141/69
== END 2017-10-24 18:49 | disposition home or self-care (01) | DRG 291 ==
LOC: D.ER 12:34 → D.M2 19:03
PROVIDERS: Family Medicine; Family Medicine Adult Medicine; Internal Medicine Nephrology; Surgery
PROC: 02HV33Z Insertion of Infusion Device into Superior Vena Cava, Percutaneous Approach (ICD-10-PCS; 2017-10-16)
PROC: B5181ZA Fluoroscopy of Superior Vena Cava using Low Osmolar Contrast, Guidance (ICD-10-PCS; 2017-10-16)
PROC: 5A1D70Z Performance of Urinary Filtration, Intermittent, Less than 6 Hours Per Day (ICD-10-PCS; 2017-10-16)
PROC: 0JH63XZ Insertion of Tunneled Vascular Access Device into Chest Subcutaneous Tissue and Fascia, Percutaneous Approach (ICD-10-PCS; principal; 2017-10-16 09:00)
DX: I13.2 Hypertensive heart and chronic kidney disease with heart failure and with stage 5 chronic kidney disease, or end stage renal disease (principal); N18.6 End stage renal disease; E43 Unspecified severe protein-calorie malnutrition; E11.22 Type 2 diabetes mellitus with diabetic chronic kidney disease; I50.9 Heart failure, unspecified; E11.649 Type 2 diabetes mellitus with hypoglycemia without coma; E83.51 Hypocalcemia; E78.5 Hyperlipidemia, unspecified; E87.5 Hyperkalemia; I25.10 Atherosclerotic heart disease of native coronary artery without angina pectoris; Z95.5 Presence of coronary angioplasty implant and graft; Z68.31 Body mass index [BMI] 31.0-31.9, adult; Z86.73 Personal history of transient ischemic attack (TIA), and cerebral infarction without residual deficits; Z85.79 Personal history of other malignant neoplasms of lymphoid, hematopoietic and related tissues

== ENCOUNTER 2017-11-06 17:59 | Emergency (ER) | payer MEDICARE ==
[~2017-11-06] VITALS: Ht 170.2 cm; Wt 72.7 kg
[~2017-11-06 17:59] MED LIST changes: +DECADRON4 MG PO; +DEXEDRINE5 MG PO; +FUROSEMIDE40 MG PO; +LANTUS INSULIN10 ML SQ; +MULTIPLE VITAMI1 TA1 PO; +OS-CAL500 MG PO; +OXYCONTIN10 MG PO; +PHOSLO667 MG PO; +PROTONIX40 MG PO; +REMERON15 MG PO; +REVLIMID5 MG PO; +VIBRAMYCIN 100100 MG PO
[2017-11-06 18:04] VITALS: Ht 170.2 cm; Wt 72.7 kg
[2017-11-06 19:55] LABS: BASOPHILS 0.3 % (0-2); EOSINOPHILS 0.4 % (0-7); HEMATOCRIT 32.1 % (36.0-48.0); HEMOGLOBIN 10.1 g/dL (12-16); IMMATURE GRANULOCYTES 1.1 % (0-5); LYMPHOCYTES 4.3 % (15-50); MCHC 31.5 g/dL (31.0-37.0); MCV 92.2 fL (80.0-100.0); MEAN PLATELET VOLUME 10.2 fL (7.4-10.4); MONOCYTES 3.9 % (2-11); RBC 3.48 10x6/uL (4.00-5.40); RDW 15.2 % (11.5-14.5); WBC 14.1 10x3/uL (4.8-10.8)
[2017-11-06 20:27] LABS: PLATELET COUNT 232 10x3/uL (130-400)
[2017-11-06 20:31] LABS: ALBUMIN 1.6 g/dL (3.4-5.0); ANION GAP 10.4 mmol/L (8-16); BILIRUBIN - TOTAL 0.33 mg/dL (0.2-1.3); CARBON DIOXIDE 26.8 mmol/L (21.0-32.0); POTASSIUM - SERUM 4.2 mmol/L (3.5-5.1); PROTEIN - SERUM 8.1 g/dL (6.4-8.2)
[2017-11-06 20:52] LABS: APPEARANCE HAZY (CLEAR); BILIRUBIN NEGATIVE (NEGATIVE); COLOR YELLOW (YELLOW); GLUCOSE NEGATIVE (NEGATIVE); KETONE NEGATIVE (NEGATIVE); NITRITE NEGATIVE (NEGATIVE); PROTEIN 1+ mg/dL (NEGATIVE); UROBILINOGEN NORMAL (NORMAL)
[2017-11-06 20:53] LABS: BACTERIA MANY /hpf (NONE SEEN); EPITHELIAL CELLS 0-5 /hpf (0-5); WHITE CELLS - URINE 25-50 /hpf (0-5)
[2017-11-06] MEDS ORDERED: AUGMENTIN 875-11 TAB PO (21:19)
[2017-11-06 23:25] VITALS: BP 157/80
== END 2017-11-06 23:25 | disposition home or self-care (01) ==
LOC: D.ER 17:59
PROVIDERS: Emergency Medicine
DX: N39.0 Urinary tract infection, site not specified (principal); K59.00 Constipation, unspecified; I12.9 Hypertensive chronic kidney disease with stage 1 through stage 4 chronic kidney disease, or unspecified chronic kidney disease; N18.9 Chronic kidney disease, unspecified; Z99.2 Dependence on renal dialysis; E11.9 Type 2 diabetes mellitus without complications; I50.9 Heart failure, unspecified; F17.200 Nicotine dependence, unspecified, uncomplicated

== ENCOUNTER 2017-11-20 10:53 | Inpatient (IN) | payer MEDICARE ==
[~2017-11-20] VITALS: Ht 170.2 cm; Wt 91.2 kg
[2017-11-20] VITALS (43 sets, daily range): BP systolic 53–148; BP diastolic 27–88; BMI 29.3
--- NOTE | ~2017-11-20 | EC ---
PATIENT:YUVAL LINARES DATE OF SERVICE: 11/20/17 SEX: F MEDICAL RECORD: [id number] DATE OF : [birth year] LOCATION:D.M2 D.213 AGE OF PATIENT: 67 ADMISSION DATE: 11/20/17 REFERRING PHYSICIAN: INTERPRETING PHYSICIAN: JAYY SHELTON MD ECHOCARDIOGRAM REPORT ECHO CHARGES 4 ECHO COMPLETE Date: 11/20/17 CLINICAL DIAGNOSIS: ELEVATEDTROPONIN ECHOCARDIOGRAPHIC MEASUREMENTS (adult normal given) AC root (d.<3.7cm) 3.5 cm LV Septum d (<1.2 cm> 1.7 cm Valve Excursion 1.8 cm LV Septum (systole) 1.8 cm Left Atria (s.<4.0cm> 3.5 cm LVPW d(<1.2cm) 1.4 cm RV (d.<2.3cm) 3.7 cm LVPW (sytole) 1.5 cm LV diastole(<5.6CM) 5.1 cm MV E-F(>70mm/sec) cm LV systole 3.9 cm LVOT Diameter 1.8 cm MV exc.(>10mm) cm Est.ejection fraction (50-75%) % DOPPLER: LVIT cm/sec A 129 cm/sec E 112 cm/sec LA cm/sec RVSP 16 mmHg LVOT 127 cm/sec AOP1/2T m/s Asc. Ao 171 cm/sec RVOT cm/sec RA cm/sec PA cm/sec AV Gradient Peak 11.65mmHg AV Mean 6.88 mmHg AV Area 2.3 cm MV Gradient Peak 8.12 mmHg MV Mean 2.99 mmHg MV Area cm COMMENTS: Desktop Manager: Kitty PAVON Pond Scaler: Yajaira Shelton TAPE# PACS Pericardial Effusion N DATE OF SERVICE: 11/22/2017 PROCEDURE: Transthoracic echocardiogram. FINDINGS: 1. Left ventricle shows moderate concentric left ventricular hypertrophy. Inflow characteristics consistent with diastolic dysfunction. 2. The left atrium appears to be normal size, structure and function. 3. The aortic valve is sclerotic; however, there is no evidence of stenosis or regurgitation. ECHOCARDIOGRAM REPORT [id number] YUVAL LINARES 4. The mitral valve has a dense band of posterior mitral annular calcification, but the mitral valve itself appears to be functioning appropriately without any evidence of stenosis or regurgitation. 5. The tricuspid valve is normal. 6. The RVSP is normal. 7. The right ventricle is mildly dilated. 8. The right atrium is normal. 9. The pulmonic valve overall is normal. CONCLUSION: This is an echo that shows mild hypertensive heart disease, otherwise normal echocardiogram for stated age. TRANSINT:[id number] Voice Confirmation ID: [id number] DOCUMENT ID: [id number] JAYY SHELTON MD at 0738 CC: [id number] DICTATION DATE: 11/22/17831 MAINSPRING WINDER: 11/22/17 0951 ADM IN [facility] [address] [place] [id number]
[~2017-11-20 10:53] MED LIST changes: +AUGMENTIN 875-11 TAB PO
[2017-11-20 11:21] LABS: BASOPHILS 0.3 % (0-2); EOSINOPHILS 1.1 % (0-7); HEMATOCRIT 32.4 % (36.0-48.0); HEMOGLOBIN 9.8 g/dL (12-16); IMMATURE GRANULOCYTES 1.9 % (0-5); MCH 29.1 pg (26.0-34.0); MCHC 30.2 g/dL (31.0-37.0); MCV 96.1 fL (80.0-100.0); MEAN PLATELET VOLUME 9.8 fL (7.4-10.4); MONOCYTES 3.2 % (2-11); NEUTROPHILS 72.5 % (40-80); RBC 3.37 10x6/uL (4.00-5.40); RDW 15.7 % (11.5-14.5); WBC 10.6 10x3/uL (4.8-10.8)
[2017-11-20 11:31] LABS: PLATELET COUNT 372 10x3/uL (130-400)
[2017-11-20 11:36] LABS: ALBUMIN 1.2 g/dL (3.4-5.0); ALKALINE PHOSPHATASE 255 U/L (46-116); ALT (SGPT) 7 U/L (10-68); BILIRUBIN - TOTAL 0.39 mg/dL (0.2-1.3); CALC OSMOLALITY 295 mosm/kg (275-300); CALCIUM 9.2 mg/dL (8.5-10.1); CARBON DIOXIDE 20.2 mmol/L (21.0-32.0); CHLORIDE - SERUM 103 mmol/L (98-107); PROTEIN - SERUM 6.3 g/dL (6.4-8.2); SODIUM 136 mmol/L (136-145); UREA NITROGEN 51 mg/dL (7-18); eGFR NON AFRICAN AMERICAN 12 mL/min (90-120)
[2017-11-20 11:37] LABS: GLUCOSE 285 mg/dL (74-106)
[2017-11-20 11:55] LABS: CREATINE KINASE 96 UL (21-215); PRO BNP 19295 pg/mL (0-125); TROPONIN-I 0.053 ng/mL (0.000-0.060)
[2017-11-20 12:07] LABS: APPEARANCE TURBID (CLEAR); BACTERIA MANY /hpf (NONE SEEN); BILIRUBIN NEGATIVE (NEGATIVE); COLOR YELLOW (YELLOW); EPITHELIAL CELLS 0-5 /hpf (0-5); GLUCOSE NEGATIVE (NEGATIVE); KETONE NEGATIVE (NEGATIVE); MUCUS <1+ /lpf (NONE SEEN); NITRITE NEGATIVE (NEGATIVE); PROTEIN 3+ mg/dL (NEGATIVE); SPECIFIC GRAVITY 1.005 (1.005-1.020); UROBILINOGEN NORMAL (NORMAL); WHITE CELLS - URINE >50 /hpf (0-5)
[2017-11-20 12:08] LABS: GRANULAR CAST RARE /lpf (NONE SEEN)
[2017-11-20 12:11] LABS: UDS - AMPHET NEGATIVE QUAL (NEGATIVE); UDS - BARB NEGATIVE QUAL (NEGATIVE); UDS - BENZO NEGATIVE QUAL (NEGATIVE); UDS - COCAINE NEGATIVE QUAL (NEGATIVE); UDS - OPIATE NEGATIVE QUAL (NEGATIVE); UDS - PCP NEGATIVE QUAL (NEGATIVE); UDS - THC NEGATIVE QUAL (NEGATIVE)
[2017-11-21] VITALS (52 sets, daily range): BP systolic 83–175; BP diastolic 41–72; BMI 27.4
[2017-11-21 03:44] LABS: BASOPHILS 0.1 % (0-2); EOSINOPHILS 0.1 % (0-7); HEMOGLOBIN 9.5 g/dL (12-16); IMMATURE GRANULOCYTES 0.4 % (0-5); LYMPHOCYTES 4.2 % (15-50); MCH 29.2 pg (26.0-34.0); MCHC 31.7 g/dL (31.0-37.0); MONOCYTES 12.2 % (2-11); PLATELET COUNT 360 10x3/uL (130-400); RBC 3.25 10x6/uL (4.00-5.40); RDW 15.4 % (11.5-14.5)
[2017-11-21 03:51] LABS: MCV 92.3 fL (80.0-100.0); WBC 13.4 10x3/uL (4.8-10.8)
[2017-11-21 04:23] LABS: ALBUMIN 1.4 g/dL (3.4-5.0); ANION GAP 13.9 mmol/L (8-16); BILIRUBIN - DIRECT 0.22 mg/dL (0.00-0.30); BILIRUBIN - INDIRECT 0.32 mg/dL (0.00-1.00); BILIRUBIN - TOTAL 0.54 mg/dL (0.2-1.3); CALCIUM 9.2 mg/dL (8.5-10.1); CARBON DIOXIDE 22.9 mmol/L (21.0-32.0); CREATININE - SERUM 4.5 mg/dL (0.6-1.3); POTASSIUM - SERUM 5.8 mmol/L (3.5-5.1); PROTEIN - SERUM 6.4 g/dL (6.4-8.2)
[2017-11-21 04:27] LABS: TROPONIN-I 1.625 ng/mL (0.000-0.060)
[2017-11-22] VITALS (18 sets, daily range): BP systolic 129–180; BP diastolic 67–92
[2017-11-22 03:48] LABS: MCHC 31.7 g/dL (31.0-37.0)
[2017-11-22 04:13] LABS: BASOPHILS 0 % (0-2); EOSINOPHILS 0.4 % (0-7); IMMATURE GRANULOCYTES 0.6 % (0-5); LYMPHOCYTES 6.6 % (15-50); MCH 28.7 pg (26.0-34.0); MCV 90.7 fL (80.0-100.0); MEAN PLATELET VOLUME 9.7 fL (7.4-10.4); MONOCYTES 9.7 % (2-11); NEUTROPHILS 82.7 % (40-80); RDW 15.9 % (11.5-14.5)
[2017-11-22 04:14] LABS: RBC 2.47 10x6/uL (4.00-5.40); WBC 6.7 10x3/uL (4.8-10.8)
[2017-11-22 04:15] LABS: HEMATOCRIT 22.4 % (36.0-48.0); HEMOGLOBIN 7.1 g/dL (12-16); PLATELET COUNT 220 10x3/uL (130-400)
[2017-11-22 04:23] LABS: ANION GAP 15.5 mmol/L (8-16); CALCIUM 8.1 mg/dL (8.5-10.1); CARBON DIOXIDE 23.5 mmol/L (21.0-32.0); CREATININE - SERUM 4.3 mg/dL (0.6-1.3); PHOSPHOROUS 5.5 mg/dL (2.5-4.9); VANCOMYCIN - RANDOM 10.3 ug/mL (10.0-20.0)
[2017-11-22 04:26] LABS: TROPONIN-I 0.299 ng/mL (0.000-0.060)
[2017-11-22 15:15] LABS: HEMATOCRIT 23.3 % (36.0-48.0); HEMOGLOBIN 7.6 g/dL (12-16)
[2017-11-23] VITALS (24 sets, daily range): BP systolic 172–198; BP diastolic 83–104
[2017-11-23 04:37] LABS: BASOPHILS 0 % (0-2); EOSINOPHILS 0.1 % (0-7); HEMATOCRIT 26.9 % (36.0-48.0); HEMOGLOBIN 8.6 g/dL (12-16); IMMATURE GRANULOCYTES 0.3 % (0-5); LYMPHOCYTES 2.7 % (15-50); MCH 28.5 pg (26.0-34.0); MCV 89.1 fL (80.0-100.0); MEAN PLATELET VOLUME 9.9 fL (7.4-10.4); MONOCYTES 6.5 % (2-11); NEUTROPHILS 90.4 % (40-80); PLATELET COUNT 185 10x3/uL (130-400); RDW 16.4 % (11.5-14.5)
[2017-11-23 04:41] LABS: RBC 3.02 10x6/uL (4.00-5.40); WBC 10.3 10x3/uL (4.8-10.8)
[2017-11-23 04:52] LABS: ANION GAP 13.3 mmol/L (8-16); CALCIUM 7.4 mg/dL (8.5-10.1); CARBON DIOXIDE 26.8 mmol/L (21.0-32.0); VANCOMYCIN - RANDOM 17.5 ug/mL (10.0-20.0)
[2017-11-23 04:53] LABS: CREATININE - SERUM 2.5 mg/dL (0.6-1.3); PHOSPHOROUS 3.3 mg/dL (2.5-4.9); POTASSIUM - SERUM 3.1 mmol/L (3.5-5.1)
[2017-11-23 08:19] LABS: HEP B CORE AB TOTAL Negative (Negative); HEPATITIS C ANTIBODY <0.1 (0.0-0.9)
[2017-11-24] VITALS (23 sets, daily range): BP systolic 153–185; BP diastolic 75–101; Ht 170.2 cm; Wt 91.2 kg
[2017-11-24 05:30] LABS: BASOPHILS 0.4 % (0-2); EOSINOPHILS 0.1 % (0-7); HEMATOCRIT 28.3 % (36.0-48.0); IMMATURE GRANULOCYTES 1.8 % (0-5); LYMPHOCYTES 2.2 % (15-50); MCH 28.8 pg (26.0-34.0); MCHC 31.8 g/dL (31.0-37.0); MCV 90.4 fL (80.0-100.0); MEAN PLATELET VOLUME 10.4 fL (7.4-10.4); MONOCYTES 7.5 % (2-11); PLATELET COUNT 174 10x3/uL (130-400); RBC 3.13 10x6/uL (4.00-5.40); RDW 16.5 % (11.5-14.5)
[2017-11-24 05:47] LABS: ANION GAP 14.2 mmol/L (8-16); CALCIUM 7.4 mg/dL (8.5-10.1); CARBON DIOXIDE 26.3 mmol/L (21.0-32.0); CREATININE - SERUM 2.9 mg/dL (0.6-1.3); PHOSPHOROUS 2.9 mg/dL (2.5-4.9)
[2017-11-24 05:49] LABS: POTASSIUM - SERUM 2.5 mmol/L (3.5-5.1)
[2017-11-24 06:15] LABS: HEPATITIS BE ANTIGEN Negative (Negative)
[2017-11-25] VITALS (23 sets, daily range): BP systolic 140–178; BP diastolic 69–99
[2017-11-25 06:00] LABS: BASOPHILS 0.4 % (0-2); EOSINOPHILS 0.6 % (0-7); HEMATOCRIT 27.2 % (36.0-48.0); HEMOGLOBIN 8.5 g/dL (12-16); IMMATURE GRANULOCYTES 5.5 % (0-5); MCH 28.6 pg (26.0-34.0); MCHC 31.3 g/dL (31.0-37.0); MCV 91.6 fL (80.0-100.0); MEAN PLATELET VOLUME 10.9 fL (7.4-10.4); MONOCYTES 10.2 % (2-11); NEUTROPHILS 77.3 % (40-80); PLATELET COUNT 185 10x3/uL (130-400); RBC 2.97 10x6/uL (4.00-5.40); RDW 16.6 % (11.5-14.5)
[2017-11-25 06:04] LABS: WBC 8.3 10x3/uL (4.8-10.8)
[2017-11-25 06:08] LABS: ANION GAP 11.4 mmol/L (8-16); CALCIUM 7.2 mg/dL (8.5-10.1); CREATININE - SERUM 2.3 mg/dL (0.6-1.3)
[2017-11-25 06:14] LABS: POTASSIUM - SERUM 3.4 mmol/L (3.5-5.1)
[2017-11-25 14:51] LABS: APPEARANCE HAZY (CLEAR); COLOR DK YELLOW (YELLOW)
[2017-11-25 14:52] LABS: BILIRUBIN NEGATIVE (NEGATIVE); GLUCOSE 100 mg/dL (NEGATIVE); KETONE SMALL mg/dL (NEGATIVE); NITRITE NEGATIVE (NEGATIVE); PROTEIN 2+ mg/dL (NEGATIVE); SPECIFIC GRAVITY 1.015 (1.005-1.020); UROBILINOGEN NORMAL (NORMAL)
[2017-11-25 14:55] LABS: AMORPHOUS SEDIMENT >1+ /lpf (NONE SEEN); BACTERIA MANY /hpf (NONE SEEN); EPITHELIAL CELLS 0-5 /hpf (0-5); RED CELLS - URINE 0-5 /hpf (0-5); WHITE CELLS - URINE 0-5 /hpf (0-5)
[2017-11-26] VITALS (24 sets, daily range): BP systolic 121–167; BP diastolic 62–104
[2017-11-26 05:40] LABS: HEMOGLOBIN 8.2 g/dL (12-16)
[2017-11-26 06:09] LABS: ANION GAP 10.5 mmol/L (8-16); CALCIUM 7.1 mg/dL (8.5-10.1); POTASSIUM - SERUM 3.5 mmol/L (3.5-5.1)
[2017-11-26 06:15] LABS: PHOSPHOROUS 2.7 mg/dL (2.5-4.9)
[2017-11-27] VITALS (12 sets, daily range): BP systolic 151–173; BP diastolic 71–87
[2017-11-27 04:47] LABS: BASOPHILS 0.4 % (0-2); EOSINOPHILS 0.1 % (0-7); HEMATOCRIT 25.1 % (36.0-48.0); HEMOGLOBIN 7.8 g/dL (12-16); IMMATURE GRANULOCYTES 6.2 % (0-5); LYMPHOCYTES 4.5 % (15-50); MCH 28.6 pg (26.0-34.0); MCHC 31.1 g/dL (31.0-37.0); MCV 91.9 fL (80.0-100.0); MEAN PLATELET VOLUME 10.9 fL (7.4-10.4); MONOCYTES 4.9 % (2-11); NEUTROPHILS 83.9 % (40-80); PLATELET COUNT 211 10x3/uL (130-400); RBC 2.73 10x6/uL (4.00-5.40); RDW 16.6 % (11.5-14.5); WBC 8.5 10x3/uL (4.8-10.8)
[2017-11-27 05:07] LABS: ANION GAP 16.5 mmol/L (8-16); CALCIUM 7.2 mg/dL (8.5-10.1); CARBON DIOXIDE 23.9 mmol/L (21.0-32.0); CREATININE - SERUM 3.4 mg/dL (0.6-1.3); POTASSIUM - SERUM 3.4 mmol/L (3.5-5.1); VANCOMYCIN - RANDOM 21.5 ug/mL (10.0-20.0)
[2017-11-27 05:12] LABS: PHOSPHOROUS 3.4 mg/dL (2.5-4.9)
[2017-11-28] VITALS: BP 167/74
[2017-11-28 04:00] VITALS: BP 155/73
[2017-11-28 06:01] LABS: BASOPHILS 0.3 % (0-2); HEMOGLOBIN 7.8 g/dL (12-16); IMMATURE GRANULOCYTES 7.3 % (0-5); LYMPHOCYTES 10.7 % (15-50); MCH 28.7 pg (26.0-34.0); MCHC 31.2 g/dL (31.0-37.0); MCV 91.9 fL (80.0-100.0); MEAN PLATELET VOLUME 10.6 fL (7.4-10.4); MONOCYTES 5.1 % (2-11); NEUTROPHILS 75.6 % (40-80); PLATELET COUNT 250 10x3/uL (130-400); RBC 2.72 10x6/uL (4.00-5.40); RDW 16.9 % (11.5-14.5); WBC 8.6 10x3/uL (4.8-10.8)
[2017-11-28 06:22] LABS: CARBON DIOXIDE 25.2 mmol/L (21.0-32.0); PHOSPHOROUS 3.7 mg/dL (2.5-4.9); POTASSIUM - SERUM 3.2 mmol/L (3.5-5.1)
[2017-11-28 08:17] VITALS: BP 164/79
[2017-11-28 11:13] VITALS: BP 182/91
[2017-11-28 16:22] VITALS: BP 166/71
[2017-11-28 20:00] VITALS: BP 158/59
[2017-11-29 03:45] LABS: BASOPHILS 0.2 % (0-2); EOSINOPHILS 1.5 % (0-7); HEMATOCRIT 25.5 % (36.0-48.0); HEMOGLOBIN 7.9 g/dL (12-16); IMMATURE GRANULOCYTES 4.6 % (0-5); LYMPHOCYTES 6.7 % (15-50); MCH 28.5 pg (26.0-34.0); MCV 92.1 fL (80.0-100.0); MEAN PLATELET VOLUME 10.5 fL (7.4-10.4); MONOCYTES 4.6 % (2-11); NEUTROPHILS 82.4 % (40-80); PLATELET COUNT 284 10x3/uL (130-400); RBC 2.77 10x6/uL (4.00-5.40); RDW 16.8 % (11.5-14.5); WBC 9.6 10x3/uL (4.8-10.8)
[2017-11-29 03:59] LABS: ANION GAP 12.5 mmol/L (8-16); CARBON DIOXIDE 27.8 mmol/L (21.0-32.0); POTASSIUM - SERUM 3.3 mmol/L (3.5-5.1); VANCOMYCIN - RANDOM 17.9 ug/mL (10.0-20.0)
[2017-11-29 04:00] VITALS: BP 166/81
[2017-11-29 04:10] LABS: CREATININE - SERUM 2.8 mg/dL (0.6-1.3); PHOSPHOROUS 2.7 mg/dL (2.5-4.9)
[2017-11-29 09:18] VITALS: BP 172/85
[2017-11-29 11:45] VITALS: BP 167/70
[2017-11-29 16:47] VITALS: BP 152/74
[2017-11-29 20:00] VITALS: BP 153/75
[2017-11-30 04:00] VITALS: BP 163/78
[2017-11-30 06:13] LABS: BASOPHILS 0.2 % (0-2); EOSINOPHILS 0.7 % (0-7); HEMATOCRIT 24.9 % (36.0-48.0); HEMOGLOBIN 7.8 g/dL (12-16); LYMPHOCYTES 6.2 % (15-50); MCH 29.1 pg (26.0-34.0); MCHC 31.3 g/dL (31.0-37.0); MCV 92.9 fL (80.0-100.0); MEAN PLATELET VOLUME 10.4 fL (7.4-10.4); MONOCYTES 3.8 % (2-11); NEUTROPHILS 86.1 % (40-80); PLATELET COUNT 283 10x3/uL (130-400); RBC 2.68 10x6/uL (4.00-5.40); RDW 17.1 % (11.5-14.5)
[2017-11-30 07:12] LABS: ANION GAP 15.5 mmol/L (8-16); CALCIUM 8.1 mg/dL (8.5-10.1); CARBON DIOXIDE 25.5 mmol/L (21.0-32.0); VANCOMYCIN - RANDOM 26.9 ug/mL (10.0-20.0)
[2017-11-30 07:13] LABS: CREATININE - SERUM 3.7 mg/dL (0.6-1.3); PHOSPHOROUS 3.7 mg/dL (2.5-4.9)
[2017-11-30 07:59] VITALS: BP 182/86
[2017-11-30 15:24] VITALS: BP 139/62
[2017-11-30 20:00] VITALS: BP 156/72
[2017-12-01] VITALS: BP 146/63
[2017-12-01 03:39] LABS: BASOPHILS 0.3 % (0-2); EOSINOPHILS 1.4 % (0-7); HEMATOCRIT 23.1 % (36.0-48.0); IMMATURE GRANULOCYTES 0.9 % (0-5); LYMPHOCYTES 8.4 % (15-50); MCH 28.6 pg (26.0-34.0); MCHC 31.2 g/dL (31.0-37.0); MCV 91.7 fL (80.0-100.0); MEAN PLATELET VOLUME 10.6 fL (7.4-10.4); MONOCYTES 4.4 % (2-11); NEUTROPHILS 84.6 % (40-80); PLATELET COUNT 296 10x3/uL (130-400); RBC 2.52 10x6/uL (4.00-5.40); RDW 16.5 % (11.5-14.5); WBC 11.8 10x3/uL (4.8-10.8)
[2017-12-01 03:41] LABS: HEMOGLOBIN 7.2 g/dL (12-16)
[2017-12-01 04:00] VITALS: BP 157/73
[2017-12-01 07:59] VITALS: BP 155/72
[2017-12-01 11:25] VITALS: BP 164/77
[2017-12-01 12:38] LABS: APPEARANCE HAZY (CLEAR); BILIRUBIN NEGATIVE (NEGATIVE); COLOR AMBER (YELLOW); GLUCOSE NEGATIVE (NEGATIVE); KETONE NEGATIVE (NEGATIVE); NITRITE NEGATIVE (NEGATIVE); PROTEIN 3+ mg/dL (NEGATIVE); UROBILINOGEN NORMAL (NORMAL)
[2017-12-01 12:40] LABS: AMORPHOUS SEDIMENT <1+ /lpf (NONE SEEN); BACTERIA MANY /hpf (NONE SEEN); EPITHELIAL CELLS 0-5 /hpf (0-5); GRANULAR CAST OCC /lpf (NONE SEEN); MUCUS <1+ /lpf (NONE SEEN); YEAST >1+ /hpf (NONE SEEN)
[2017-12-01 14:57] VITALS: BP 150/70
[2017-12-01 21:01] VITALS: BP 173/83
[2017-12-02 01:32] VITALS: BP 114/75
[2017-12-02 03:39] LABS: BASOPHILS 0.5 % (0-2); EOSINOPHILS 2.3 % (0-7); HEMATOCRIT 24.4 % (36.0-48.0); HEMOGLOBIN 7.9 g/dL (12-16); IMMATURE GRANULOCYTES 0.7 % (0-5); LYMPHOCYTES 5.4 % (15-50); MCH 29.3 pg (26.0-34.0); MCHC 32.4 g/dL (31.0-37.0); MCV 90.4 fL (80.0-100.0); MEAN PLATELET VOLUME 9.8 fL (7.4-10.4); MONOCYTES 3.1 % (2-11); PLATELET COUNT 254 10x3/uL (130-400); RDW 16.3 % (11.5-14.5); WBC 12.1 10x3/uL (4.8-10.8)
[2017-12-02 03:54] LABS: ALBUMIN 2.9 g/dL (3.4-5.0); ANION GAP 12.1 mmol/L (8-16); BILIRUBIN - DIRECT 0.27 mg/dL (0.00-0.30); BILIRUBIN - INDIRECT 0.44 mg/dL (0.00-1.00); BILIRUBIN - TOTAL 0.71 mg/dL (0.2-1.3); CALCIUM 8.1 mg/dL (8.5-10.1); CARBON DIOXIDE 27.7 mmol/L (21.0-32.0); CREATININE - SERUM 3.7 mg/dL (0.6-1.3); PHOSPHOROUS 4.5 mg/dL (2.5-4.9); POTASSIUM - SERUM 3.8 mmol/L (3.5-5.1); PROTEIN - SERUM 6.4 g/dL (6.4-8.2); VANCOMYCIN - RANDOM 19.7 ug/mL (10.0-20.0)
[2017-12-02 05:48] VITALS: BP 151/74
[2017-12-02 21:20] VITALS: BP 166/78
[2017-12-03 04:14] LABS: BASOPHILS 0.7 % (0-2); EOSINOPHILS 2.7 % (0-7); HEMATOCRIT 28.7 % (36.0-48.0); HEMOGLOBIN 9.4 g/dL (12-16); IMMATURE GRANULOCYTES 0.7 % (0-5); LYMPHOCYTES 5.7 % (15-50); MCH 29.1 pg (26.0-34.0); MCHC 32.8 g/dL (31.0-37.0); MCV 88.9 fL (80.0-100.0); MEAN PLATELET VOLUME 10.2 fL (7.4-10.4); MONOCYTES 3.7 % (2-11); NEUTROPHILS 86.5 % (40-80); PLATELET COUNT 229 10x3/uL (130-400); RBC 3.23 10x6/uL (4.00-5.40); RDW 15.9 % (11.5-14.5); WBC 10.4 10x3/uL (4.8-10.8)
[2017-12-03 04:41] LABS: ANION GAP 12.2 mmol/L (8-16); CARBON DIOXIDE 29.3 mmol/L (21.0-32.0); PHOSPHOROUS 3.8 mg/dL (2.5-4.9); POTASSIUM - SERUM 3.5 mmol/L (3.5-5.1)
[2017-12-03 04:43] LABS: CREATININE - SERUM 2.7 mg/dL (0.6-1.3)
[2017-12-03 05:59] VITALS: BP 174/81
[2017-12-03 21:04] VITALS: BP 167/79
[2017-12-04 01:13] VITALS: BP 164/77
[2017-12-04 05:09] LABS: BASOPHILS 0.9 % (0-2); EOSINOPHILS 1.8 % (0-7); HEMATOCRIT 28.1 % (36.0-48.0); HEMOGLOBIN 9.1 g/dL (12-16); IMMATURE GRANULOCYTES 0.6 % (0-5); LYMPHOCYTES 8.4 % (15-50); MCH 29.1 pg (26.0-34.0); MCHC 32.4 g/dL (31.0-37.0); MCV 89.8 fL (80.0-100.0); MEAN PLATELET VOLUME 10.4 fL (7.4-10.4); MONOCYTES 3.4 % (2-11); NEUTROPHILS 84.9 % (40-80); PLATELET COUNT 255 10x3/uL (130-400); RBC 3.13 10x6/uL (4.00-5.40); WBC 8.6 10x3/uL (4.8-10.8)
[2017-12-04 06:00] LABS: ANION GAP 12.9 mmol/L (8-16); CALCIUM 8.2 mg/dL (8.5-10.1); CARBON DIOXIDE 25.7 mmol/L (21.0-32.0); CREATININE - SERUM 3.3 mg/dL (0.6-1.3); PHOSPHOROUS 4.3 mg/dL (2.5-4.9); POTASSIUM - SERUM 3.6 mmol/L (3.5-5.1)
[2017-12-04 06:12] VITALS: BP 156/47
[2017-12-04 07:55] VITALS: BP 163/73
[2017-12-04 11:55] VITALS: BP 158/80
[2017-12-04 16:29] VITALS: BP 172/79
[2017-12-04 20:00] VITALS: BP 169/80
[2017-12-05] VITALS: BP 157/75
[2017-12-05 04:00] VITALS: BP 176/88
[2017-12-05 05:36] LABS: BASOPHILS 1.4 % (0-2); EOSINOPHILS 1.6 % (0-7); HEMATOCRIT 27.8 % (36.0-48.0); HEMOGLOBIN 8.9 g/dL (12-16); IMMATURE GRANULOCYTES 0.4 % (0-5); LYMPHOCYTES 10.5 % (15-50); MCH 28.9 pg (26.0-34.0); MCV 90.3 fL (80.0-100.0); MEAN PLATELET VOLUME 10.3 fL (7.4-10.4); MONOCYTES 3.6 % (2-11); NEUTROPHILS 82.5 % (40-80); PLATELET COUNT 260 10x3/uL (130-400); RBC 3.08 10x6/uL (4.00-5.40)
[2017-12-05 05:54] LABS: ANION GAP 13.8 mmol/L (8-16); CALCIUM 8.4 mg/dL (8.5-10.1); CARBON DIOXIDE 25.2 mmol/L (21.0-32.0); PHOSPHOROUS 5.1 mg/dL (2.5-4.9); VANCOMYCIN - RANDOM 12.3 ug/mL (10.0-20.0)
[2017-12-05 08:03] VITALS: BP 180/84
[2017-12-05 11:58] VITALS: BP 173/85
[2017-12-05 23:42] VITALS: BP 157/82
[2017-12-06 04:53] LABS: BASOPHILS 1.8 % (0-2); EOSINOPHILS 1.8 % (0-7); HEMATOCRIT 28.3 % (36.0-48.0); HEMOGLOBIN 9.2 g/dL (12-16); IMMATURE GRANULOCYTES 0.2 % (0-5); LYMPHOCYTES 9.7 % (15-50); MCH 29.4 pg (26.0-34.0); MCHC 32.5 g/dL (31.0-37.0); MCV 90.4 fL (80.0-100.0); MEAN PLATELET VOLUME 10.2 fL (7.4-10.4); MONOCYTES 5.7 % (2-11); NEUTROPHILS 80.8 % (40-80); PLATELET COUNT 278 10x3/uL (130-400); RBC 3.13 10x6/uL (4.00-5.40); RDW 16.1 % (11.5-14.5); WBC 8.5 10x3/uL (4.8-10.8)
[2017-12-06 05:27] LABS: ANION GAP 13.8 mmol/L (8-16); CALCIUM 8.3 mg/dL (8.5-10.1); CARBON DIOXIDE 26.9 mmol/L (21.0-32.0); PHOSPHOROUS 4.1 mg/dL (2.5-4.9); POTASSIUM - SERUM 3.7 mmol/L (3.5-5.1); VANCOMYCIN - RANDOM 9.9 ug/mL (10.0-20.0)
[2017-12-06 05:31] LABS: CREATININE - SERUM 2.9 mg/dL (0.6-1.3)
[2017-12-06 06:34] VITALS: BP 146/80
[2017-12-06 07:48] VITALS: BP 182/88
[2017-12-06 11:39] VITALS: BP 153/73
[2017-12-06 21:13] VITALS: BP 150/76
[2017-12-07 01:25] VITALS: BP 147/73
[2017-12-07 06:07] VITALS: BP 154/78
[2017-12-07 17:05] VITALS: BP 145/86
[2017-12-07 20:58] VITALS: BP 138/63
[2017-12-08] VITALS: BP 136/67
[2017-12-08 04:12] LABS: BASOPHILS 2.9 % (0-2); EOSINOPHILS 3.6 % (0-7); HEMATOCRIT 27.4 % (36.0-48.0); HEMOGLOBIN 8.8 g/dL (12-16); IMMATURE GRANULOCYTES 0.4 % (0-5); LYMPHOCYTES 15.1 % (15-50); MCH 29.2 pg (26.0-34.0); MCHC 32.1 g/dL (31.0-37.0); MEAN PLATELET VOLUME 10.4 fL (7.4-10.4); MONOCYTES 17.6 % (2-11); NEUTROPHILS 60.4 % (40-80); PLATELET COUNT 279 10x3/uL (130-400); RBC 3.01 10x6/uL (4.00-5.40); RDW 16.4 % (11.5-14.5)
[2017-12-08 04:16] LABS: WBC 5.6 10x3/uL (4.8-10.8)
[2017-12-08 04:28] LABS: ANION GAP 14.7 mmol/L (8-16); BILIRUBIN - DIRECT 0.25 mg/dL (0.00-0.30); BILIRUBIN - INDIRECT 0.31 mg/dL (0.00-1.00); BILIRUBIN - TOTAL 0.56 mg/dL (0.2-1.3); CALCIUM 8.8 mg/dL (8.5-10.1); PHOSPHOROUS 4.2 mg/dL (2.5-4.9); POTASSIUM - SERUM 3.7 mmol/L (3.5-5.1); PROTEIN - SERUM 6.8 g/dL (6.4-8.2); VANCOMYCIN - RANDOM 14.7 ug/mL (10.0-20.0)
[2017-12-08 05:22] VITALS: BP 150/77
[2017-12-08 08:30] VITALS: BP 145/70
[2017-12-08 11:51] VITALS: BP 149/73
[2017-12-08 16:06] VITALS: BP 137/74
[2017-12-08 20:00] VITALS: BP 150/73
[2017-12-09 04:59] VITALS: BP 161/50
[2017-12-09 07:13] LABS: BASOPHILS 2.2 % (0-2); EOSINOPHILS 5.5 % (0-7); HEMATOCRIT 27.1 % (36.0-48.0); HEMOGLOBIN 8.7 g/dL (12-16); IMMATURE GRANULOCYTES 0.5 % (0-5); LYMPHOCYTES 17.1 % (15-50); MCH 29.2 pg (26.0-34.0); MCHC 32.1 g/dL (31.0-37.0); MCV 90.9 fL (80.0-100.0); MONOCYTES 16.8 % (2-11); NEUTROPHILS 57.9 % (40-80); PLATELET COUNT 321 10x3/uL (130-400); RBC 2.98 10x6/uL (4.00-5.40); RDW 16.6 % (11.5-14.5)
[2017-12-09 08:12] LABS: CALCIUM 9.2 mg/dL (8.5-10.1); CARBON DIOXIDE 24.1 mmol/L (21.0-32.0); PHOSPHOROUS 5.1 mg/dL (2.5-4.9); POTASSIUM - SERUM 4.1 mmol/L (3.5-5.1)
[2017-12-09 08:23] LABS: CREATININE - SERUM 4.1 mg/dL (0.6-1.3)
[2017-12-09 10:01] VITALS: BP 156/78
[2017-12-09 11:36] VITALS: BP 150/72
[2017-12-09 16:00] VITALS: BP 162/69
[2017-12-09 21:10] VITALS: BP 160/75
[2017-12-10 05:13] VITALS: BP 163/79
[2017-12-10 05:30] LABS: BASOPHILS 1.7 % (0-2); EOSINOPHILS 4.7 % (0-7); HEMATOCRIT 27.4 % (36.0-48.0); HEMOGLOBIN 8.8 g/dL (12-16); IMMATURE GRANULOCYTES 1.2 % (0-5); MCH 29.1 pg (26.0-34.0); MCHC 32.1 g/dL (31.0-37.0); MCV 90.7 fL (80.0-100.0); MEAN PLATELET VOLUME 10.2 fL (7.4-10.4); MONOCYTES 15.5 % (2-11); NEUTROPHILS 61.9 % (40-80); PLATELET COUNT 336 10x3/uL (130-400); RBC 3.02 10x6/uL (4.00-5.40); RDW 16.6 % (11.5-14.5)
[2017-12-10 05:38] LABS: WBC 7.6 10x3/uL (4.8-10.8)
[2017-12-10 06:02] LABS: ANION GAP 16.8 mmol/L (8-16); CALCIUM 9.2 mg/dL (8.5-10.1); CARBON DIOXIDE 25.1 mmol/L (21.0-32.0); CREATININE - SERUM 3.9 mg/dL (0.6-1.3); PHOSPHOROUS 4.2 mg/dL (2.5-4.9); POTASSIUM - SERUM 3.9 mmol/L (3.5-5.1)
[2017-12-10] MEDS ORDERED: CATAPRES0.2 MG PO (17:55)
[2017-12-10] MEDS ORDERED: DIFLUCAN100 MG PO (17:56)
[2017-12-10] MEDS ORDERED: ACETAMINOPHEN325 MG PO (17:58)
[2017-12-10] MEDS ORDERED: MEGACE400 MG/10 PO (17:59)
[2017-12-10] MEDS ORDERED: HUMALOG 30100 UNITS/ SC (17:59)
[2017-12-10] MEDS ORDERED: FLUTICASONE PRO16 GM NASAL (18:01)
[2017-12-10] MEDS ORDERED: CALMOSEPTINE OI71 GM TOPICAL (18:01)
[2017-12-10] MEDS ORDERED: OXYCODONE HCL5 M1 PO (18:02)
[2017-12-10] MEDS ORDERED: XOPENEX 0.0.63 MG/3 UPD (18:03)
== END 2017-12-10 19:26 | DRG 871 ==
LOC: D.ER 10:53 → D.ICU 13:24 → D.EDHOLD 13:24 → D.M2 13:24 → D.ICU 14:15 → D.M2 11-27 16:04
PROVIDERS: Family Medicine; Internal Medicine Nephrology; Internal Medicine Pulmonary Disease
PROC: 5A1945Z Respiratory Ventilation, 24-96 Consecutive Hours (ICD-10-PCS; principal; 2017-11-20)
PROC: 0BH17EZ Insertion of Endotracheal Airway into Trachea, Via Natural or Artificial Opening (ICD-10-PCS; 2017-11-20)
PROC: 05HN33Z Insertion of Infusion Device into Left Internal Jugular Vein, Percutaneous Approach (ICD-10-PCS; 2017-11-21)
DX: A41.9 Sepsis, unspecified organism (principal); L89.153 Pressure ulcer of sacral region, stage 3; J96.01 Acute respiratory failure with hypoxia; N18.6 End stage renal disease; J69.0 Pneumonitis due to inhalation of food and vomit; E87.2 Acidosis; N25.81 Secondary hyperparathyroidism of renal origin; R57.9 Shock, unspecified; J44.1 Chronic obstructive pulmonary disease with (acute) exacerbation; I12.0 Hypertensive chronic kidney disease with stage 5 chronic kidney disease or end stage renal disease; E44.0 Moderate protein-calorie malnutrition; E11.22 Type 2 diabetes mellitus with diabetic chronic kidney disease; Z99.2 Dependence on renal dialysis; E87.5 Hyperkalemia; I73.9 Peripheral vascular disease, unspecified; M85.80 Other specified disorders of bone density and structure, unspecified site; F17.200 Nicotine dependence, unspecified, uncomplicated; E83.42 Hypomagnesemia; R19.7 Diarrhea, unspecified; D63.1 Anemia in chronic kidney disease; L89.309 Pressure ulcer of unspecified buttock, unspecified stage; I11.0 Hypertensive heart disease with heart failure; I50.9 Heart failure, unspecified; R53.81 Other malaise; I25.10 Atherosclerotic heart disease of native coronary artery without angina pectoris; Z86.73 Personal history of transient ischemic attack (TIA), and cerebral infarction without residual deficits; B96.20 Unspecified Escherichia coli [E. coli] as the cause of diseases classified elsewhere

== ENCOUNTER 2017-12-19 06:29 | Day surgery (SDC) | payer MEDICARE ==
[~2017-12-19] VITALS: Ht 170.2 cm; Wt 82.6 kg
--- NOTE | ~2017-12-19 | PN ---
PATIENT:YUVAL LINARES MEDICAL RECORD: [id number] LOCATION:DROGE ADMISSION DATE: 12/19/17 PROGRESS NOTE DATE OF SERVICE: 12/19/2017 The patient was here for placement of AV fistula versus graft. The left upper extremity has been saved. I have examined her left upper extremity. I have read the vein mapping study and I have reviewed the images. It appears that she is going to be best served with a left arm looped AV graft fistula. The patient has a significant urinary tract infection. There is a significant risk that she would develop bacteremia and seeding of the graft with bacteria from the urinary tract infection. For that reason, her operation will be canceled and rescheduled. TRANSINT:[id number] Voice Confirmation ID: [id number] DOCUMENT ID: [id number] CHEY FULTON MD at 1008 CC: SHAHAB MALDONADO [id number] DICTATION DATE: 12/19/17 0957 CORPORATE COUNSEL: 12/20/17 0034 [facility] 12/19/17 [place] [id number] [place] [address]
[~2017-12-19 06:29] MED LIST changes: +ACETAMINOPHEN325 MG PO; +CALMOSEPTINE OI71 GM TOPICAL; +CATAPRES0.2 MG PO; +DIFLUCAN100 MG PO; +FLUTICASONE PRO16 GM NASAL; +HUMALOG 30100 UNITS/ SC; +MEGACE400 MG/10 PO; +OXYCODONE HCL5 M1 PO; +XOPENEX 0.0.63 MG/3 UPD
[2017-12-19 06:52] LABS: BASOPHILS 0.2 % (0-2); EOSINOPHILS 1.6 % (0-7); HEMATOCRIT 28.4 % (36.0-48.0); HEMOGLOBIN 9.2 g/dL (12-16); IMMATURE GRANULOCYTES 1.2 % (0-5); LYMPHOCYTES 8.6 % (15-50); MCH 29.6 pg (26.0-34.0); MCHC 32.4 g/dL (31.0-37.0); MCV 91.3 fL (80.0-100.0); MEAN PLATELET VOLUME 9.6 fL (7.4-10.4); MONOCYTES 10.5 % (2-11); NEUTROPHILS 77.9 % (40-80); PLATELET COUNT 347 10x3/uL (130-400); RBC 3.11 10x6/uL (4.00-5.40); WBC 13.4 10x3/uL (4.8-10.8)
[2017-12-19 07:00] LABS: ANION GAP 14.6 mmol/L (8-16); CALCIUM 8.9 mg/dL (8.5-10.1); CARBON DIOXIDE 26.7 mmol/L (21.0-32.0); CREATININE - SERUM 3.4 mg/dL (0.6-1.3); POTASSIUM - SERUM 4.3 mmol/L (3.5-5.1)
[2017-12-19 07:06] LABS: APTT 21.7 SECONDS (22.8-39.4); INR 1.19 (0.85-1.17); PROTIME 14.7 SECONDS (11.6-15.0)
[2017-12-19 08:38] VITALS: BP 131/85; Ht 170.2 cm; Wt 82.6 kg
[2017-12-19 09:35] LABS: APPEARANCE SL CLDY (CLEAR); BILIRUBIN NEGATIVE (NEGATIVE); COLOR YELLOW (YELLOW); GLUCOSE NEGATIVE (NEGATIVE); KETONE NEGATIVE (NEGATIVE); NITRITE NEGATIVE (NEGATIVE); PROTEIN 2+ mg/dL (NEGATIVE); UROBILINOGEN NORMAL (NORMAL)
[2017-12-19 09:36] LABS: BACTERIA MANY /hpf (NONE SEEN); EPITHELIAL CELLS 0-5 /hpf (0-5); MUCUS <1+ /lpf (NONE SEEN); RED CELLS - URINE 0-5 /hpf (0-5); WHITE CELLS - URINE 25-50 /hpf (0-5)
== END 2017-12-19 11:05 | disposition home or self-care (01) ==
LOC: D.OPS 06:29
PROVIDERS: Internal Medicine Nephrology; Surgery
DX: N18.6 End stage renal disease (principal); N39.0 Urinary tract infection, site not specified; Z53.09 Procedure and treatment not carried out because of other contraindication; Z01.812 Encounter for preprocedural laboratory examination

== ENCOUNTER 2018-01-01 16:21 | Emergency (ER) | payer MEDICARE ==
[~2018-01-01] VITALS: Ht 167.6 cm; Wt 77.3 kg
[2018-01-01 16:24] VITALS: Ht 167.6 cm; Wt 77.3 kg
[2018-01-01 17:24] LABS: BASOPHILS 0.1 % (0-2); EOSINOPHILS 1.2 % (0-7); HEMATOCRIT 23.8 % (36.0-48.0); IMMATURE GRANULOCYTES 2.1 % (0-5); LYMPHOCYTES 7.6 % (15-50); MCHC 31.1 g/dL (31.0-37.0); MCV 96.4 fL (80.0-100.0); MEAN PLATELET VOLUME 9.3 fL (7.4-10.4); MONOCYTES 6.7 % (2-11); NEUTROPHILS 82.3 % (40-80); RBC 2.47 10x6/uL (4.00-5.40); RDW 16.8 % (11.5-14.5); WBC 16.4 10x3/uL (4.8-10.8)
[2018-01-01 17:29] LABS: HEMOGLOBIN 7.4 g/dL (12-16); PLATELET COUNT 269 10x3/uL (130-400)
[2018-01-01 17:36] LABS: APTT 42.1 SECONDS (22.8-39.4); INR 1.18 (0.85-1.17); PROTIME 14.5 SECONDS (11.6-15.0)
[2018-01-01 17:56] LABS: ALBUMIN 1.9 g/dL (3.4-5.0); ALKALINE PHOSPHATASE 91 U/L (46-116); BILIRUBIN - TOTAL 0.54 mg/dL (0.2-1.3); CALC OSMOLALITY 276 mosm/kg (275-300); CARBON DIOXIDE 24.4 mmol/L (21.0-32.0); CHLORIDE - SERUM 97 mmol/L (98-107); CKMB 3.1 U/L (0.0-3.6); CREATINE KINASE 46 UL (21-215); CREATININE - SERUM 2.8 mg/dL (0.6-1.3); GLUCOSE 138 mg/dL (74-106); POTASSIUM - SERUM 4.8 mmol/L (3.5-5.1); SODIUM 133 mmol/L (136-145); UREA NITROGEN 38 mg/dL (7-18); eGFR NON AFRICAN AMERICAN 18 mL/min (90-120)
[2018-01-01 18:05] LABS: ALT (SGPT) 6 U/L (10-68); CALCIUM 6.8 mg/dL (8.5-10.1); TROPONIN-I < 0.017 ng/mL (0.000-0.060)
[2018-01-01 20:55] VITALS: BP 105/50
== END 2018-01-01 20:55 | disposition home or self-care (01) ==
LOC: D.ER 16:21
PROVIDERS: Family Medicine
DX: I12.0 Hypertensive chronic kidney disease with stage 5 chronic kidney disease or end stage renal disease (principal); N18.6 End stage renal disease; Z99.2 Dependence on renal dialysis; D64.9 Anemia, unspecified; I95.9 Hypotension, unspecified; Z86.73 Personal history of transient ischemic attack (TIA), and cerebral infarction without residual deficits; F17.200 Nicotine dependence, unspecified, uncomplicated

== ENCOUNTER 2018-01-05 15:00 | Outpatient (CLI) | payer MEDICARE ==
[~2018-01-05] VITALS: Ht 170.2 cm; Wt 74.1 kg
--- NOTE | ~2018-01-05 | MORECARE ---
CASE MANAGEMENT DISCHARGE SUMMARY PATIENT: YUVAL LINARES UNIT: [id number] ADM DATE: 01/05/18 AGE: 67 : 52 SEX: F ROOM/BED: D.2227 AUTHOR: MARY SPENCE PHYSICIAN: REFERRING PHYSICIAN: BLANCA FREDERICK MD DATE OF SERVICE: 01/06/18 Discharge Plan Patient Name: YUVAL LINARES Facility: [facility]:[place] : 1950 Planned Disposition: Nursing Home Facility Anticipated Discharge Date: 01/06/18 Discharge Date: 01/06/2018 Expected LOS: 1 Initial Reviewer: [email or web address] Initial Review Date: 01/05/2018 Generated: 01/06/18 4:19 pm Comments DCP- Discharge Planning Updated by [email or web address]: Jessa Kay on 01/06/18 2:[address] Late Entry 929 Patient admitted for transfusion from [facility] in OBS status. Had hemodialysis Monday. Plan to discharge back to facility today. As per nurse at [facility], the patient is being admitted to a skilled bed. Transportation arranged by facility Last DP export: 01/06/18 2:12 Patient Name: YUVAL LINARES Page [phone] at 1519 All edits/amendments must be made on the electronic document DICTATION DATE: 01/06/181518 CORRUGATOR OPERATOR: MIKE 01/06/18 151 RPT#: [id number] DC DATE:01/06/18 STATUS: DIS IN [facility] [address] [place] [address] END OF REPORT
--- NOTE | ~2018-01-05 | MORECARE ---
CASE MANAGEMENT DISCHARGE SUMMARY PATIENT: YUVAL LINARES UNIT: [id number] ADM DATE: 01/05/18 AGE: 67 : 52 SEX: F ROOM/BED: D.2227 AUTHOR: MARY SPENCE PHYSICIAN: REFERRING PHYSICIAN: BLANCA FREDERICK MD DATE OF SERVICE: 01/06/18 Discharge Plan Patient Name: YUVAL LINARES Facility: [facility]:[place] : 1950 Planned Disposition: Group Home Facility Anticipated Discharge Date: 01/06/18 Discharge Date: 01/06/2018 Expected LOS: 1 Initial Reviewer: [email or web address] Initial Review Date: 01/05/2018 Generated: 01/06/18 4:11 pm Patient Name: YUVAL LINARES Page [id number] at 1512 All edits/amendments must be made on the electronic document DICTATION DATE: 01/06/18 1511 COMPLAINT OPERATOR: MIKE 01/06/18 1511 RPT#: [id number] DC DATE:01/06/18 STATUS: DIS IN [facility] [address] [place] [address] END OF REPORT
--- NOTE | ~2018-01-05 | MORECARE ---
CASE MANAGEMENT DISCHARGE SUMMARY PATIENT: YUVAL LINARES UNIT: [id number] ADM DATE: 01/05/18 AGE: 67 : 52 SEX: F ROOM/BED: D.2227 AUTHOR: MARY SPENCE PHYSICIAN: REFERRING PHYSICIAN: BLANCA FREDERICK MD DATE OF SERVICE: 01/08/18 Discharge Plan Patient Name: YUVAL LINARES Facility: [facility]:[place] : 1950 Planned Disposition: Penitentiary Facility Anticipated Discharge Date: 01/06/18 Discharge Date: 01/06/2018 Expected LOS: 1 Initial Reviewer: [email or web address] Initial Review Date: 01/05/2018 Generated: 01/08/18 5:36 pm Comments DCP- Discharge Planning Updated by [email or web address]: Jessa Kay on 01/06/18 2:[address] Late Entry 929 Patient admitted for transfusion from [facility] in OBS status. Had hemodialysis Monday. Plan to discharge back to facility today. As per nurse at [facility], the patient is being admitted to a skilled bed. Transportation arranged by facility Last DP export: 01/06/18 2:19 Patient Name: YUVAL LINARES Page [id number] at 1637 All edits/amendments must be made on the electronic document DICTATION DATE: 01/08/18 1636 COLORING ROOM WORKER: MIKE 01/08/18 1636 RPT#: [id number] DC DATE:01/06/18 STATUS: DIS IN [facility] [address] [place] [address] END OF REPORT
[2018-01-05 19:45] VITALS: BP 128/62
[2018-01-05 20:00] VITALS: BP 121/64; BP 122/63
[2018-01-05 21:03] VITALS: BP 128/62; Ht 170.2 cm; Wt 74.1 kg
[2018-01-05 23:35] VITALS: BP 148/76
[2018-01-05 23:50] VITALS: BP 158/83
[2018-01-06] VITALS: BP 154/79
[2018-01-06 02:20] VITALS: BP 158/77
[2018-01-06 04:00] VITALS: BP 161/80
[2018-01-06 05:31] LABS: BASOPHILS 0.3 % (0-2); EOSINOPHILS 1.8 % (0-7); HEMATOCRIT 30.3 % (36.0-48.0); HEMOGLOBIN 9.9 g/dL (12-16); IMMATURE GRANULOCYTES 0.5 % (0-5); LYMPHOCYTES 11.2 % (15-50); MCH 27.3 pg (26.0-34.0); MCHC 32.7 g/dL (31.0-37.0); MCV 83.7 fL (80.0-100.0); MEAN PLATELET VOLUME 11.6 fL (7.4-10.4); MONOCYTES 11.9 % (2-11); NEUTROPHILS 74.3 % (40-80); RBC 3.62 10x6/uL (4.00-5.40); RDW 14.6 % (11.5-14.5)
[2018-01-06 05:36] LABS: PLATELET COUNT 147 10x3/uL (130-400)
== END 2018-01-06 10:32 | disposition home or self-care (01) ==
LOC: OBSVTIME → D.OPS 15:00 → D.MS 15:19 → D.OPS 17:08 → OBSVTIME 17:09 → D.OPS 17:09 → D.MS 17:09 → D.OPS 01-06 10:32
PROVIDERS: Internal Medicine Medical Oncology
DX: D64.9 Anemia, unspecified (principal); C90.00 Multiple myeloma not having achieved remission; E11.22 Type 2 diabetes mellitus with diabetic chronic kidney disease; I12.0 Hypertensive chronic kidney disease with stage 5 chronic kidney disease or end stage renal disease; N18.6 End stage renal disease; Z99.2 Dependence on renal dialysis

== ENCOUNTER 2018-03-27 07:37 | Day surgery (SDC) | payer MEDICARE ==
[~2018-03-27] VITALS: Ht 170.2 cm; Wt 70.5 kg
[2018-03-27 08:17] LABS: BASOPHILS 0.2 % (0-2); EOSINOPHILS 1.9 % (0-7); HEMATOCRIT 34.8 % (36.0-48.0); HEMOGLOBIN 10.7 g/dL (12-16); IMMATURE GRANULOCYTES 0.4 % (0-5); LYMPHOCYTES 9.4 % (15-50); MCHC 30.7 g/dL (31.0-37.0); MCV 94.3 fL (80.0-100.0); MONOCYTES 4.5 % (2-11); NEUTROPHILS 83.6 % (40-80); RBC 3.69 10x6/uL (4.00-5.40); RDW 14.9 % (11.5-14.5); WBC 11.8 10x3/uL (4.8-10.8)
[2018-03-27 08:22] LABS: PLATELET COUNT 89 10x3/uL (130-400)
[2018-03-27 08:26] LABS: CALCIUM 8.1 mg/dL (8.5-10.1); CARBON DIOXIDE 23.9 mmol/L (21.0-32.0); CREATININE - SERUM 5.8 mg/dL (0.6-1.3); POTASSIUM - SERUM 5.9 mmol/L (3.5-5.1)
[2018-03-27] MEDS ORDERED: MEGACE400 MG/10 PO (09:11)
[2018-03-27 09:12] VITALS: BP 116/69; Ht 170.2 cm; Wt 70.5 kg
[2018-03-27] MEDS ORDERED: PROTONIX40 MG PO (09:13)
[2018-03-27] MEDS ORDERED: THEREMS-M1 TAB PO (09:14)
[2018-03-27] MEDS ORDERED: LYRICA (09:18)
[2018-03-27] MEDS ORDERED: PHOSLO667 MG PO (09:20)
[2018-03-27] MEDS ORDERED: PROMOD LIQUID P30 M1 PO (09:20)
[2018-03-27] MEDS ORDERED: ASCORBIC ACID500 MG PO (09:22)
[2018-03-27] MEDS ORDERED: [UNRECOGNIZED DRUG - OTHER] PO (09:24)
[2018-03-27 09:30] LABS: PLATELET ESTIMATE DECREASED
--- NOTE | 2018-03-27 09:47 | NUR ---
6322 DR FULTON BEEPED. CALL RETURNED. DR. FULTON INFORMED OF ELEVATED WBC & LOW PLATELET COUNT. STATES PT IS OKAY FOR SURGERY. Santosh GLOVER R.N.
--- NOTE | 2018-03-30 18:03 | OP ---
PATIENT NAME: YUVAL LINARES MEDICAL RECORD: [id number] :54 LOCATION:D.OPS ADMISSION DATE: SURGEON: COLBY FULTON MD DATE OF OPERATION: 03/27/2018 PREOPERATIVE DIAGNOSIS: End-stage renal disease without chronic access for hemodialysis. POSTOPERATIVE DIAGNOSIS: End-stage renal disease without chronic access for hemodialysis. PROCEDURE: Left brachiobasilic arteriovenous fistula for hemodialysis access. SURGEON: Colby Fulton MD COURT BAILIFF: None. BLOOD LOSS: Less than 100 cc. ANESTHESIA: General. COMPLICATIONS: None. I saw the patient in the outpatient department. The left upper extremity was being saved for placement of this fistula. I told the patient that I would make the determination of whether we will place a primary fistula or a graft and this would be done at the time of surgery when I interrogated the left upper extremity with the ultrasound. Unfortunately, her cephalic vein had been accessed by a needle for a blood draw today. This was exactly in the area where I was going to perform my anastomosis. The risks, possible complications, and alternatives to the procedure were explained to the patient. She elects to proceed. The discussion specifically included, but was not limited to, bleeding requiring emergency reoperation, infection, nonfunctioning fistula or fistula that would not mature. OPERATIVE FINDINGS: Sclerotic small cephalic vein at the cubital fossa as well as a small nonsclerotic median basilic vein. The anastomosis was actually from the brachial artery, which was moderately sized and of good quality to the median basilic vein to provide with dual outflow. OPERATIVE COURSE: The patient was conveyed to the operating room electively on 03/27/2018. General anesthesia was induced by the anesthesia staff. The left upper extremity was abducted at 90 degrees to the patient's trunk. The left upper extremity was sterilely prepped and draped. A transverse incision was accomplished in the left cubital fossa. Sharp dissection was carried down to the level of the cephalic vein, which was encircled with vessel loops. Sharp dissection was carried down to the level of the median basilic vein, which was encircled with vessel loops. Paired antebrachial veins were ligated doubly and divided between ligatures. This added some mobility to the venous arcade in the cubital fossa. I dissected out the brachial artery, which was encircled with vessel loops. At no time was there any apparent nervous injury during the operative procedure. OPERATIVE REPORT [id number] YUVAL LINARES I elected to perform a cbgg-pq-ydht anastomosis. The brachial artery and the median basilic vein were encircled with vessel loops. Intravenous heparin was given. A longitudinal venotomy and longitudinal arteriotomy were accomplished. The qvzx-iz-aegc anastomosis was then fashioned with a running 7-0 Prolene suture. Control was released on these vessels. By Doppler examination, there was outflow out through the median basilic vein and into the basilic vein. There was also retrograde flow through the venous arcade and up the cephalic vein. Doppler signal could be heard at the left wrist in the radial and ulnar arteries. Doppler signal could be heard in the brachial artery proximal and distal to the anastomosis. A topical hemostatic agent was applied to the wound bed. The subdermis was approximated with interrupted 3-0 Vicryls. The skin was approximated with a running intracuticular 3-0 Vicryl. A sterile dressing was applied. The patient was then extubated and conveyed to the post-anesthesia care unit where she was in stable condition. TRANSINT:[id number] Voice Confirmation ID: [id number] DOCUMENT ID: [id number] COLBY FULTON MD at 1803 CC: LOGAN CELIS MD [id number] DICTATION DATE: 03/29/18 1210 [facility] W[facility]ER: 03/29/18 1304 [facility] 03/27/18 [facility] [address] [place] [address]
== END 2018-03-27 17:35 | disposition home or self-care (01) ==
LOC: D.OPS 07:37
PROVIDERS: Anesthesiology
DX: N18.6 End stage renal disease (principal); Z01.812 Encounter for preprocedural laboratory examination

== ENCOUNTER 2018-03-29 06:53 | Outpatient (CLI) | payer MEDICARE ==
[~2018-03-29] VITALS: Ht 170.2 cm; Wt 70.5 kg
--- NOTE | ~2018-03-29 | HEMODYNAMI ---
PATIENT:YUVAL LINARES MEDICAL RECORD: [id number] : 54 LOCATION:[facility] ADMISSION DATE: 03/29/18 Generatedon:03/29/201810:44 Patient name: YUVAL LINARES Patient #: [id number] SSN: : 1950 Date of study: 03/29/2018 Page: Of Hemodynamic Procedure Report Patient Data Patient Demographics Procedure consent was obtained First Name: YUVAL Gender: Female Last Name: MILAGROS : 1950 [facility] Initial: CORNELIUS Age: 67 year(s) Patient #: [id number] Race: Additional ID: [id number] Contact details Address: [address] [place] [address] State: [place] City: [place] Zip code: [address] Past Medical History History of disease Date Diagnosis Comments CHF Hypertension Allergies: No known allergies Admission Admission Data Admission Date: 03/29/2018 Admission Time: 6:53 Procedure Procedure Types Cath Procedure Diagnostic Procedure Sedation Charges Moderate Sedation up to 15 minutes Peripheral Cath Diagnostic Procedure Lean Manufacturing Specialist Peripheral Procedures Plagi-Bjraazi-Qhx-Off Procedure Description Procedure Date Procedure Date: 03/29/2018 Procedure Start Time: 10:00 Procedure End Time: 10:42 Procedure Staff Name Function Crow Argueta MD Performing Physician Maribell Harrington RT Monitor Lou Rodas RN Nurse Noemi Montes RT Scrub Eddie Meng RT Community Liaison Sushma Blount RN Community Liaison Procedure Data Cath Procedure Fluoroscopy Diagnostic fluoroscopy Total fluoroscopy Time: 4.4 time: 4.4 min min Diagnostic fluoroscopy Total fluoroscopy dose: 113 dose: 113 mGy mGy Contrast Material Contrast Material Type Amount (ml) Isovue 300 71 Entry Location Entry Primary Successful Side Size Upsize Upsize Entry Closure Succes sful Closure Location (Fr) 1 (Fr) 2 (Fr) Remarks Device Remarks Femoral Left 5 Fr Exoseal artery Estimated blood loss: 5 ml Diagnostic catheters Device Type Used For End Catheter Placement DIAGNOSTIC UF 5Fr Multi-vessel catheter ([id number]) Angiography DIAGNOSTIC IM 5Fr Multi-vessel catheter ([id number]) Angiography Procedure Complications No complications Procedure Medications Medication Administration Route Dosage 0.9% NaCl I.V. 100 ml/hr Oxygen etCO2 Nasal cannula 2 l/min Lidocaine 2% added to field 20 Heparin Flush Bag added to field 2 bags (1000units/500ml NS) Versed 2 mg Fentanyl I.V. 50 mcg Versed I.V. 2 mg Fentanyl I.V. 50 mcg Versed I.V. 2 mg Fentanyl I.V. 100 mcg Versed I.V. 0.5 mg Fentanyl I.V. 25 mcg Hemodynamics Rest Heart Rate: 94 (bpm) Snapshots Pre Cath Intra NCS Post Cath Vital Signs Time Heart Resp SPO2 etCO2 NIBP (mmHg) Rhythm Pain Sedation Rate (ipm) (%) (mmHg) Status Level (bpm) 9:44:50 107 17 96 34 165/95(134) NSR 0 (11) 10(A) , No pain 9:49:14 97 13 95 33 185/102(151) NSR 0 (11) 10(A) , No pain 9:53:36 93 12 100 34.5 179/97(139) NSR 0 (11) 10(A) , No pain 9:57:58 92 12 100 34 160/91(132) NSR 0 (11) 10(A) , No pain 10:02:20 93 12 100 22.5 164/92(126) NSR 0 (11) 10(A) , No pain 10:06:40 91 11 100 32.3 157/87(125) NSR 0 (11) 9(A) , No pain 10:10:59 90 11 100 35.3 147/86(126) NSR 0 (11) 9(A) , No pain 10:15:17 89 12 100 18 150/82(122) NSR 0 (11) 9(A) , No pain 10:19:35 88 11 100 15.7 156/85(124) NSR 0 (11) 9(A) , No pain 10:23:55 86 11 100 13.5 150/83(119) NSR 0 (11) 9(A) , No pain 10:28:13 86 10 100 18.7 150/84(123) NSR 0 (11) 9(A) , No pain 10:32:35 86 11 100 15 143/79(120) NSR 0 (11) 9(A) , No pain 10:36:53 86 11 100 11.2 147/82(115) NSR 0 (11) 9(A) , No pain 10:41:09 90 10 100 29.2 163/94(127) NSR 0 (11) 10(A) , No pain Medications Time Medication Route Dose Verified Delivered Reason Notes Effe ctiveness by by 9:44:21 0.9% NaCl I.V. 100 Crow Lou used for ml/hr Kendall Rodas aerospace quality engineer 9:44:27 Oxygen etCO2 2 Crow Lou used for Nasal l/min Kendall Rodas procedure cannula RN 9:44:31 Lidocaine 2% added 20ml Crow Crow used for to vial Kendall Argueta MD procedure field 9:44:38 Heparin Flush added 2 Crow Crow used for Bag to bags Kendall Argueta MD procedure (1000units/500ml field NS) 9:52:24 Versed 2 mg Crow Lou for Kendall Rodas sedation RN 9:52:30 Fentanyl I.V. 50 Crow Lou for mcg Kendall Rodas sedation RN 9:57:05 Fentanyl I.V. 50 Crow Lou for mcg Kendall Rodas sedation RN 9:57:56 Versed I.V. 2 mg Crow Lou for Kendall Rodas sedation RN 10:03:16 Versed I.V. 2 mg Crow Lou for Kendall Rodas sedation RN 10:03:42 Fentanyl I.V. 100 Crow Lou for mcg Kendall Rodas sedation RN 10:18:42 Versed I.V. 0.5 Crow Buffie for mg Kendall Blount RN sedation 10:18:48 Fentanyl I.V. 25 Crow Buffie for mcg Kendall Blount RN sedation Procedure Log Time Note 9:24:37 Time tracking: Regular hours (M-F 7:00 - 5:00) 9:24:41 Plan of Care:Hemodynamics will remain stable., Cardiac rhythm will remain stable., Comfort level will be maintained., Respiratory function will remain adequate., Patient/ family verbilizes understanding of procedure., Procedure tolerated without complication., Recovers from procedure without complications.. 9:26:59 Eddie Meng RT(R) sent for patient. Start room use. 9:37:47 Patient received from Pre/Post Procedure Room to CCL 1 Alert and oriented. Tansferred to table in Supine position. 9:37:48 Warm blankets applied, and darlin hugger turned on for patient comfort. 9:37:48 Correct patient and procedure confirmed by team. 9:37:50 Signed procedure consent form obtained from patient. 9:37:51 ECG and BP/O2 sat monitors applied to patient. 9:37:51 Full Disclosure recording started 9:43:38 Vital chart was started 9:44:21 0.9% NaCl 100 ml/hr I.V. was administered by Lou Rodas RN; used for procedure; 9:44:27 Oxygen 2 l/min etCO2 Nasal cannula was administered by Lou Rodas RN; used for procedure; 9:44:31 Lidocaine 2% 20ml vial added to field was administered by Crow Argueta MD; used for procedure; 9:44:38 Heparin Flush Bag (1000units/500ml NS) 2 bags added to field was administered by Crow Argueta MD; used for procedure; 9:45:40 Baseline sample Acquired. 9:45:44 Rhythm: sinus rhythm 9:45:51 H&P Date Dictated: 03/29/2018 Within 30 days and on chart., H&P Addendum completed by physician on day of procedure. (MUST COMPLETE FOR ALL OUTPATIENTS). 9:45:52 Pre-procedure instructions explained to patient. 9:45:53 Pre-op teaching completed and patient verbalized understanding. 9:45:54 Family in waiting room. 9:45:55 Patient NPO since Midnight. 9:45:58 Is the patient allergic to Iodine/contrast media? Yes. 9:49:54 Was the patient premedicated? Yes 9:49:56 Is patient on blood thinner?No 9:49:58 Patient diabetic? Yes. 9:49:59 If diabetic: On Metformin? No 9:50:34 Previous problem with sedation/anesthesia? No ? 9:50:36 Snore? Yes 9:50:37 Sleep apnea? No 9:50:38 Deviated septum? No 9:50:39 Opens mouth fully? Yes 9:50:40 Sticks out tongue? Yes 9:50:42 Airway obstruction? No ? 9:50:44 Dentures? No ? 9:50:48 Pre procedure: right dorsailis pedis pulse Doppler 9:51:37 Patient pain scale 0/10 ?. 9:52:24 Versed 2 mg was administered by Lou Rodas RN; for sedation; 9:52:30 Fentanyl 50 mcg I.V. was administered by Lou Rodas RN; for sedation; 9:52:34 IV patent on arrival in right forearm with 0.9% NaCl at [facility]. 9:52:36 Lab results completed and on chart. 9:52:41 Bilateral groins area was prepped with chlora-prep and draped in sterile fashion 9:52:42 Alarms reviewed by R. N. 9:52:43 Sharps counted by scrub and verified by R.N. 9:52:44 Physician arrived 9::44 --------ALL STOP TIME OUT------ 9::44 Final Timeout: patient, procedure, and site verified with staff and physician. All members of the team are in agreement. 9:52:47 Bilateral groins site verified by team. 9:52:49 Physical assessment completed. ASA score P 2 - A patient with mild systemic disease as per Crow Argueta MD. 9:52:53 Sedation plan: IV Moderate Sedation Medication:Versed, Fentanyl 9:53:03 Use device set CATH PACK 9:53:05 ACIST Syringe (97595) opened to sterile field. 9:53:05 ACIST Hand Control (51581) opened to sterile field. 9:53:06 ACIST Manifold (12251) opened to sterile field. 9:53:06 Medline Cath Pack ([id number]) opened to sterile field. 9:53:06 Bag Decanter (2002S) opened to sterile field. 9:53:07 DIAGNOSTIC WIRE .035 260cm J wire (160171) opened to sterile field. 9:53:14 SHEATH 5FR [place] ([id number]) opened to sterile field. 9:56:23 Procedure started. 9:57:05 Fentanyl 50 mcg I.V. was administered by Lou Rodas RN; for sedation; 9:57:56 Versed 2 mg I.V. was administered by Lou Rodas RN; for sedation; 10:00:07 Local anesthetic to left femerol artery with Lidocaine 2% by Crow Argueta MD.INITIAL ACCESS ONLY 10:03:16 Versed 2 mg I.V. was administered by Lou Rodas RN; for sedation; 10:03:42 Fentanyl 100 mcg I.V. was administered by Lou Rodas RN; for sedation; 10:13:34 MICROPUNCTURE 4FR Cook ([id number]) opened to sterile field. 10:13:37 Access obtained with 4Fr micropunture. 10:13:46 A 5 Fr sheath was inserted into the Left Femoral artery 10:14:10 A DIAGNOSTIC UF 5Fr catheter ([id number]) was advanced over the wire and used for Multi-vessel Angiography. 10:16:14 Abdominal angiogram w/ runoff was performed. 10:18:42 Versed 0.5 mg I.V. was administered by Sushma Blount RN; for sedation; 10:18:48 Fentanyl 25 mcg I.V. was administered by Sushma Blount RN; for sedation; 10:22:28 Catheter removed. 10:22:49 A DIAGNOSTIC IM 5Fr catheter ([id number]) was advanced over the wire and used for Multi-vessel Angiography. 10:26:45 Right leg runoff performed. 10:37:59 EXOSEAL 5Fr (EX500) opened to sterile field. 10:38:07 Catheter removed. 10:38:16 Sheath removed intact; hemostasis achieved with Exoseal to the Left Femoral artery. 10:38:18 Procedure ended.(Physican Out) 10:40:40 Fluoroscopy time 04.40 minutes. 10:40:57 Fluoroscopy dose: 113 mGy 10:40:57 Flurop Dose total: 113 10:41:01 Contrast amount:Isovue 300 71ml. 10:41:03 Sharps counted by scrub and verified by R.N. 10:41:04 Insertion/operative site no bleeding no hematoma. 10:41:09 Post left femerol artery:stable 10:41:31 Post Procedure Pulses reassessed and unchanged 10:41:35 Post procedure rhythm: unchanged. 10:41:38 Estimated blood loss: 5 ml 10:41:39 Post procedure instruction explained to patient.Patient verbalizes understanding. 10:41:40 Patient needs reinforcement of post procedure teaching. 10:42:03 Procedure type changed to Cath procedure, Diagnostic procedure, Sedation Charges, Moderate Sedation up to 15 minutes, Peripheral Cath Diagnostic Procedure, Lean Manufacturing Specialist Peripheral Procedures, Ixmtv-Gdqdmkt-Hla-Off 10:42:04 Procedure and supply charges have been captured, reviewed, submitted and are correct. 10:42:08 Procedure Complication : No complications 10:42:11 Vital chart was stopped 10:42:11 See physician's report for complete and final results. 10:42:24 Report given to Pre/Post Procedure Room. 10:42:27 Patient transfered to Pre/Post Procedure Room with Stretcher. 10:42:36 Procedure ended. 10:42:36 Full Disclosure recording stopped 10:42:39 End room use (Document Last) Device Usage Item Name Manufacture Quantity Catalog Hospital Part Current Minimal Lot# / Number Charge Number Stock Stock Serial# Code ACIST Syringe Acist 1 83425 [id number] [id number] [id number] 20 (12207) Medical Systems Inc ACIST Hand Acist 1 82657 848498 261716 776658 5 Control Medical (00176) Systems Inc ACIST Acist 1 39506 772226 659234 540707 5 Manifold Medical (22251) Systems Inc Medline Cath Medline 1 [id number] 789364 00499 355230 5 Pack ([id number]) Bag Decanter Microtek 1 2002S 618090 17199 060432 5 (2001S) Medical Inc. DIAGNOSTIC [place] 1 425408 193527 538492 268551 30 WIRE .035 260cm J wire (657164) SHEATH 5FR Terumo 1 [id number] 403405 435926 305958 5 [place] (SJP065) MICROPUNCTURE Cook Medical 1 Q21444 185515 962875 220714 5 4FR Cook (V56414) DIAGNOSTIC UF Cardinal 1 [id number] 905045 316185 477947 10 5Fr catheter Health ([id number]) DIAGNOSTIC IM Cardinal 1 [id number] 863554 509604 195239 5 5Fr catheter Health (447348I) EXOSEAL 5Fr Cardinal 1 EX500 238879 268250 410688 10 (EX500) Health Signature Audit [place] Stage Time Signature Unsigned Intra-Procedure 03/29/2018 Maribell Harrington 10:44:46 AM RT(R) Signatures Monitor : Maribell Harrington RT Signature : Date : Time : [address] [place] [address]
[~2018-03-29 06:53] MED LIST changes: +ASCORBIC ACID500 MG PO; +LYRICA; +PROMOD LIQUID P30 M1 PO; +THEREMS-M1 TAB PO; +[UNRECOGNIZED DRUG - OTHER] PO
[2018-03-29 08:13] VITALS: BP 104/55; Ht 170.2 cm; Wt 70.5 kg
[2018-03-29 08:19] LABS: ANION GAP 17.9 mmol/L (8-16); BASOPHILS 0.1 % (0-2); CREATININE - SERUM 4.4 mg/dL (0.6-1.3); EOSINOPHILS 1.6 % (0-7); HEMATOCRIT 33.4 % (36.0-48.0); HEMOGLOBIN 10.3 g/dL (12-16); IMMATURE GRANULOCYTES 0.2 % (0-5); LYMPHOCYTES 6.2 % (15-50); MCH 29.2 pg (26.0-34.0); MCHC 30.8 g/dL (31.0-37.0); MCV 94.6 fL (80.0-100.0); MEAN PLATELET VOLUME 11.7 fL (7.4-10.4); MONOCYTES 5.3 % (2-11); NEUTROPHILS 86.6 % (40-80); RBC 3.53 10x6/uL (4.00-5.40); RDW 15.2 % (11.5-14.5); WBC 14.1 10x3/uL (4.8-10.8)
[2018-03-29 08:20] LABS: PLATELET COUNT 113 10x3/uL (130-400); POTASSIUM - SERUM 4.9 mmol/L (3.5-5.1)
--- NOTE | 2018-03-29 11:15 | NUR ---
PATIENT RESTING, WAKES TO VERBAL STIMULI. VSS ON 1L NASAL CANNULA. LEFT GROIN DRESSING IS CDI, NO S/S OF BLEEDING OR HEMATOMA.
--- NOTE | 2018-03-29 11:45 | NUR ---
PATIENT RESTING, VSS ON ROOM AIR. LEFT GROIN DRESSING IS CDI, NO S/S OF BLEEDING OR HEMATOMA.
--- NOTE | 2018-03-29 12:15 | NUR ---
PATIENT INTERMITTENTLY RESTING, VSS ON ROOM AIR. LEFT GROIN DRESSING IS CDI, NO S/S OF BLEEDING OR HEMATOMA. NO C/O PAIN, NUMBNESS, OR TINGLING.
--- NOTE | 2018-03-29 12:45 | NUR ---
PATIENT RESTING. VSS ON ROOM AIR. LEFT GROIN DRESSING IS CDI, NO S/S OF BLEEDING OR HEMATOMA.
--- NOTE | 2018-03-29 13:15 | NUR ---
PATIENT AWAKE, HEAD OF BED ELEVATED TO 30 DEGREES. LEFT GROIN DRESSING IS CDI, NO S/S OF BLEEDING OR HEMATOMA. PATIENT EATING TURKEY SANDWICH. NO N/V.
--- NOTE | 2018-03-29 13:45 | NUR ---
PATIENT EDUCATION REGARDING DISCHARGE INSTRUCTIONS GIVEN, ALL QUESTIONS ANSWERED. VSS ON ROOM AIR. LEFT GROIN DRESSING IS CDI, NO S/S OF BLEEDING OR HEMATOMA.
--- NOTE | 2018-03-29 14:15 | NUR ---
PATIENT CLEANED UP FROM BOWEL MOVEMENT AND REDRESSED. IV REMOVED. VSS ON ROOM AIR. LEFT GROIN DRESSING IS CDI, NO S/S OF BLEEDING OR HEMATOMA.
--- NOTE | 2018-03-29 14:20 | NUR ---
PATIENT TRANSPORTED VIA WHEELCHAIR TO CAR WITH ARCHIVIST ECONOMIC HISTORY FROM [facility]. ALL BELONGINGS WITH PATIENT.
== END 2018-03-29 14:20 ==
LOC: D.CATH 06:53
PROVIDERS: Internal Medicine Cardiovascular Disease
DX: I70.239 Atherosclerosis of native arteries of right leg with ulceration of unspecified site (principal); Z89.612 Acquired absence of left leg above knee; Z01.812 Encounter for preprocedural laboratory examination

== ENCOUNTER → 2018-05-01 13:08 | Outpatient (CLI) | payer MEDICARE ==
[2018-03-29 08:13] VITALS: BMI 24.3
== END | disposition home or self-care (01) ==
LOC: D.US 13:08
DX: R60.0 Localized edema (principal)

== ENCOUNTER 2018-08-09 09:59 | Outpatient (CLI) | payer MEDICARE | END 2018-08-09 18:40 | disposition home or self-care (01) | LOC: D.OPS 09:59 | DX: C90.00 Multiple myeloma not having achieved remission (principal); D64.9 Anemia, unspecified ==

== ENCOUNTER 2018-08-13 13:26 | Emergency (ER) | payer MEDICARE ==
[~2018-08-13] VITALS: Ht 170.2 cm; Wt 65.9 kg
[2018-08-13 13:35] VITALS: Ht 170.2 cm; Wt 65.9 kg
[2018-08-13 14:37] LABS: HEMATOCRIT 26.1 % (36.0-48.0); HEMOGLOBIN 8.1 g/dL (12-16); MCH 31.8 pg (26.0-34.0); MCV 102.4 fL (80.0-100.0); MEAN PLATELET VOLUME 12.3 fL (7.4-10.4); RBC 2.55 10x6/uL (4.00-5.40)
[2018-08-13 14:49] LABS: APTT 35.9 SECONDS (22.8-39.4); INR 1.24 (0.85-1.17); PROTIME 15.1 SECONDS (11.6-15.0)
[2018-08-13 14:51] LABS: ALBUMIN 1.8 g/dL (3.4-5.0); ALKALINE PHOSPHATASE 106 U/L (46-116); ALT (SGPT) 9 U/L (10-68); BILIRUBIN - TOTAL 0.48 mg/dL (0.2-1.3); CALC OSMOLALITY 298 mosm/kg (275-300); CALCIUM 8.8 mg/dL (8.5-10.1); CHLORIDE - SERUM 101 mmol/L (98-107); CREATININE - SERUM 5.3 mg/dL (0.6-1.3); POTASSIUM - SERUM 4.4 mmol/L (3.5-5.1); PROTEIN - SERUM 6.9 g/dL (6.4-8.2); SODIUM 137 mmol/L (136-145); UREA NITROGEN 73 mg/dL (7-18); eGFR NON AFRICAN AMERICAN 9 mL/min (90-120)
[2018-08-13 14:52] LABS: GLUCOSE 160 mg/dL (74-106)
[2018-08-13 15:07] LABS: CKMB 2.6 U/L (0.0-3.6); CREATINE KINASE 37 UL (21-215); MAGNESIUM - SERUM 2.1 mg/dL (1.8-2.4); THYROID STIMULATING HORMONE 0.03 uIU/mL (0.36-3.74)
[2018-08-13 15:12] LABS: TROPONIN-I 0.538 ng/mL (0.000-0.060)
[2018-08-13 15:57] LABS: PLATELET COUNT 72 10x3/uL (130-400); WBC 1.1 10x3/uL (4.8-10.8)
[2018-08-13 16:27] LABS: EOSINOPHILS 12 % (0-7); LYMPHOCYTES 52 % (15-50); MONOCYTES 4 % (2-11); NEUTROPHILS 32 % (40-80); PLATELET ESTIMATE DECREASED
[2018-08-13 17:21] VITALS: BP 157/75
== END 2018-08-13 17:23 | disposition home or self-care (01) ==
LOC: D.ER 13:26
PROVIDERS: Emergency Medicine
DX: I95.9 Hypotension, unspecified (principal); I12.0 Hypertensive chronic kidney disease with stage 5 chronic kidney disease or end stage renal disease; N18.6 End stage renal disease; Z99.2 Dependence on renal dialysis